=== PATIENT | male | born 1990 | race Caucasian/White ===

== ENCOUNTER 2020-04-05 09:46 | Outpatient (REF) | payer OTHER, SELFPAY | END 2020-04-05 09:47 | disposition home or self-care (01) | LOC: HO.LAB 09:46 | PROVIDERS: Visit Provider Internal Medicine | DX: Z20.828 Contact with and (suspected) exposure to other viral communicable diseases (principal) | CPT/HCPCS: C9803; U0003 ==

== ENCOUNTER 2020-04-12 03:55 | Emergency (ER) | payer OTHER, SELFPAY ==
[2020-04-12 04:03] VITALS: BP 140/82; BP 147/77; PULSE 75; PULSE 80; RESP 16; TEMP 36.8; O2SAT 97; O2SAT 98; BMI 35.7
[2020-04-12 05:15] VITALS: BP 123/58; PULSE 64
[2020-04-12 06:18] LABS: MANUAL DIFF FLAG NO
[2020-04-12 06:20] LABS: Basophils Absolute Auto 0.1 X10*3/uL (0.0-0.2); Basophils Percent Auto 0.4 % (0-2); Eosinophils Absolute Auto 0.1 X10*3/uL (0.0-0.4); Eosinophils Percent Auto 0.4 % (0-4); Hematocrit 42.1 % (42-52); Hemoglobin 14.3 g/dl (14.0-18.0); Imm Gran Abs Auto 0.05 X10*3/uL (0.00-0.03); Imm Gran Pct Auto 0.3 % (0.0-0.4); Lymphocytes Absolute Auto 3.6 X10*3/uL (1.2-4.9); Lymphocytes Percent Auto 22.7 % (20-40); Mean Corpuscular Hemoglobin 27.9 pg (27.0-33.0); Mean Corpuscular Volume 82.1 fL (80-98); Mean Platelet Volume 10.3 fL (9.4-12.4); Monocytes Absolute Auto 0.8 X10*3/uL (0.1-1.2); Monocytes Percent Auto 5.3 % (2-11); Neutrophils Absolute Auto 11.1 X10*3/uL (2.0-8.3); Neutrophils Percent Auto 70.9 % (45-73); Platelet Count 266 X10*3/uL (160-400); Red Blood Count 5.13 X10*6/uL (4.60-5.80); Red Cell Distribution Width 12.4 % (11.0-16.0); White Blood Count 15.7 X10*3/uL (4.8-10.8)
[2020-04-12 06:24] LABS: Glucose Urine UA NEG (NEG); Leukocyte Esterase Urine NEG (NEG); Nitrite Urine NEG (NEG); PH 5.5 (5.0-8.0); Specific Gravity - Urine >= 1.030 (1.005-1.025); Urine Blood TRACE (NEG); Urine Ketones NEG (NEG); Urine Protein NEG (NEG-TRACE)
[2020-04-12 06:40] LABS: Appearance Urine CLEAR; Color Urine YELLOW
--- NOTE | 2020-04-12 06:40 | CT_ITS ---
EXAMINATION: CT ABDOMEN AND PELVIS WITH CONTRAST CLINICAL INFORMATION: Abdominal pain. COMPARISON: None TECHNIQUE: Multidetector volumetric images were obtained from the superior aspect of the liver through the pubic symphysis following administration 85 mL of Omnipaque 350 intravenous contrast. Sagittal and coronal reformatted images were obtained on the technologist's workstation. Oral contrast: No This CT examination was performed using dose optimization techniques as appropriate, variously including the following: *Automated exposure control *Adjustment of mA and/or kV according to patient size (this includes techniques or standardized protocols for targeted exams where dose is matched to indication/reason for exam; i.e. extremities or head) *Use of iterative reconstruction technique DLP: 906 mGy-cm FINDINGS: LUNG BASES: The visualized lung bases are unremarkable. LIVER, GALLBLADDER, AND BILIARY TREE: The liver is normal in size, shape, and attenuation. No focal hepatic lesion or biliary ductal dilatation is present. The gallbladder is unremarkable with no evidence of radiopaque gallstones, gallbladder wall thickening, or obvious pericholecystic inflammatory changes. PANCREAS: Unremarkable. SPLEEN: Unremarkable. ADRENAL GLANDS: Unremarkable. KIDNEYS AND URETERS: The kidneys are normal in size, shape, and attenuation. No hydronephrosis, hydroureter, or calculi seen. No perinephric stranding. BLADDER: The bladder is nondistended. There is minimal bladder wall thickening likely due to to underdistention. GASTROINTESTINAL TRACT: There is scattered stool in the gas seen throughout the colon without any significant distention. The small bowel loops are normal caliber. No free air or free fluid seen. Appendix is normal caliber. No inflammatory process seen in the abdomen. ABDOMINAL WALL: No significant hernia is appreciated. LYMPH NODES: Normal. 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 Abdominal aorta is normal caliber. PELVIC VISCERA: No free fluid. No abnormal pelvic mass. No abnormal lymph nodes. OSSEOUS STRUCTURES: Grade 1 retrolisthesis of L4 or L5. Mild loss of L5-S1 disc height is noted. No lytic or sclerotic process seen. CT/CT abdomen pelvis w con IMPRESSION: No acute intra-abdominal process seen.
[2020-04-12 06:44] LABS: Alanine Aminotransferase 39 U/L (0-40); Albumin Level 4.5 g/dL (3.5-5.0); Alkaline Phosphatase 93 U/L (39-117); Anion Gap 16 (12-20); Aspartate Amino Transferase 22 U/L (5-37); Bilirubin Total 0.3 mg/dL (0.0-1.0); Blood Urea Nitrogen 11 mg/dL (9-16); Calcium 9.3 mg/dL (8.4-10.2); Carbon Dioxide 22 mmol/L (22-29); Chloride 106 mmol/L (96-108); Creatinine Clr Calc Pharmacy 150.4; Estimated Glomerular Filt Rate > 60; Glucose Random 90 mg/dL (60-115); Potassium 4.7 mmol/l (3.3-5.1); Sodium 139 mmol/L (135-145); Total Protein 7.2 g/dL (6.5-8.0)
[2020-04-12 06:45] LABS: Mucus Urine 3+ /LPF; RBC Urine 0-2 /HPF (0); Squamous Epithelial Cell Urine TRACE /LPF; WBC Urine 0 /HPF (0-4)
[2020-04-12 06:46] LABS: Uric Acid Crystals Urine TRACE /LPF
--- NOTE | 2020-04-12 06:47 | ED.ABDPAIN ---
HPI - Abdominal Pain General Chief Complaint: Abdominal Pain Stated Complaint: Abdominal Pain Time Seen by Provider: 04/12/20 06:40 Source: patient Mode of arrival: ambulatory Limitations: no limitations History of Present Illness MD elicited complaint: abdominal pain Pertinent past history: other (IBS) Onset (ago): day(s) (last night) Pain Consistency: intermittent Location: RLQ, LLQ and suprapubic Severity: moderate Quality: cramping and stabbing Radiation: none Migration to: no migration Exacerbating factors: movement Relieving factors: nothing Context: history of similar episodes (milder) Associated symptoms: nausea, vomiting, diarrhea and hematochezia (brief episodes where he noted some blood) Related Data Home Medications Medication Instructions Recorded Confirmed fiber [Fiber Choice] 1 tab PO DAILY 04/12/20 04/12/20 polyethylene glycol 3350 [Miralax] 17 g PO DAILY PRN 04/12/20 04/12/20 Previous Rx's Medication Instructions Recorded hydrocodone-acetaminophen 1 tab PO Q6H PRN #15 tab 04/12/20 ondansetron 4 mg PO Q8H PRN #20 tab 04/12/20 Allergies Allergy/AdvReac Type Severity Reaction Status Date / Time No Known Allergies Allergy Verified 04/12/20 04:03 [No Known Allergies*] Review of Systems Review of Systems Constitutional : No Weight loss, No Fever, No Chills ENT/Mouth : No sore throat, No Rhinorrhea Eyes: No Swelling, No Redness Cardiovascular : No Chest Pain, No SOB, NoEdema Respiratory : No Cough, No Sputum, No Wheezing Gastrointestinal : Positive Nausea, Positive Vomiting, positive Diarrhea, positive abdominal Pain, No Hematochezia, No Melena Genitourinary : No Dysuria, No Urinary Frequency, No Hematuria, No Urgency Musculoskeletal : No joint pain, No Myalgias, No Joint Swelling Skin : No Skin Lesions, No rash Neuro : No Weakness, No Numbness, No Dizziness, No Headache Psych : No Anxiety/Panic, No Depression Heme/Lymph: No Bruising, No Lymphadenopathy Endocrine : No Polyuria, No Polydipsia All other systems reviewed and are negative. Physical Exam Vital Signs: Vital Signs: Last Vital Signs Temp 98.1 F 04/12/20 10:00 Pulse 63 04/12/20 10:00 Resp 20 04/12/20 10:00 BP 142/77 H 04/12/20 10:00 Pulse Ox 98 04/12/20 10:00 Body Mass Index 35.7 Appearance: Alert. Oriented X3. No acute distress. patient in a deep sleep had to be woken up, anxious Eyes: Pupils equal, round and reactive to light. ENT: Pharynx normal. Neck: Normal inspection. Neck supple. CVS: Normal heart rate and rhythm. Pulses normal. Respiratory: No respiratory distress. Breath sounds normal. Abdomen: Soft and very mild suprapubic tenderness no rebound or guarding. Skin: Skin warm and dry. Normal skin color. Normal skin turgor. Extremities: No lower extremity edema. No calf ttp Neuro: Oriented X 3. No motor deficit. No sensory deficit. Course Course Course Narrative: mucously bloody diarrhea noted, no clots, studies sent off negative CT scan, WBC baseline 17 no increased rise from his baseline, + stool for WBCs and blood, one bout of stool in 5 hours in ED, will send message to GI for recommendations still pending GI call back at this time on bout of stool while in ED at this time will DC home and follow up with GI as outpatient basis discussed with patient that GI aware and agree with plan MDM - Abdominal Pain MDM Narrative Medical decision making narrative: 29 yo male with what sounds like hx of IBS comes in with lower abdominal pain n/v/d had episode of brb - not toxic, overly anxious, had to be woken up for for my exam but reports 10/10 pain he has no rebound or guarding at this time, will obtain labs, hydrate, CT scan for colitis, dispo per results and findings. Lab Data Result diagrams: 04/12/20 05:53 04/12/20 05:53 Labs: Lab Results 04/12/20 04/12/20 04/12/20 Range/Units 05:53 05:53 05:53 WBC 15.7 H (4.8-10.8) X10*3/uL RBC 5.13 (4.60-5.80) X10*6/uL Hgb 14.3 (14.0-18.0) g/dl Hct 42.1 (42-52) % MCV 82.1 (80-98) fL MCH 27.9 (27.0-33.0) pg MCHC 34.0 (31.0-36.0) g/dl RDW 12.4 (11.0-16.0) % Plt Count 266 (160-400) X10*3/uL MPV 10.3 (9.4-12.4) fL Immature Gran % (Auto) 0.3 (0.0-0.4) % Neut % (Auto) 70.9 (45-73) % Lymph % (Auto) 22.7 (20-40) % [place] % (Auto) 5.3 (2-11) % Eos % (Auto) 0.4 (0-4) % Baso % (Auto) 0.4 (0-2) % Lymph # (Auto) 3.6 (1.2-4.9) X10*3/uL [place] # (Auto) 0.8 (0.1-1.2) X10*3/uL Eos # (Auto) 0.1 (0.0-0.4) X10*3/uL Baso # (Auto) 0.1 (0.0-0.2) X10*3/uL Abs Immat Gran (auto) 0.05 H (0.00-0.03) X10*3/uL Absolute Neuts (auto) 11.1 H (2.0-8.3) X10*3/uL Absolute Nucleated RBC 0.000 (0.0-0.012) X10*3/uL Nucleated RBC % (auto) 0.0 (0.0-0.2) /100WBC Hold Blue Top SEE NOTE Sodium 139 (135-145) mmol/L Potassium 4.7 (3.3-5.1) mmol/l Chloride 106 (96-108) mmol/L Carbon Dioxide 22 (22-29) mmol/L Anion Gap 16 (12-20) BUN 11 (9-16) mg/dL Creatinine 0.85 (0.5-1.4) mg/dL Estim Creat Clear Calc 150.4 Estimated GFR > 60 Random Glucose 90 (60-115) mg/dL Lactic Acid (0.5-2.0) mmol/L Calcium 9.3 (8.4-10.2) mg/dL Total Bilirubin 0.3 (0.0-1.0) mg/dL AST 22 (5-37) U/L ALT 39 (0-40) U/L Alkaline Phosphatase 93 (39-117) U/L Total Protein 7.2 (6.5-8.0) g/dL Albumin 4.5 (3.5-5.0) g/dL Urine Color Urine Appearance Urine pH (5.0-8.0) Ur Specific [place] (1.005-1.025) Urine Protein (NEG-TRACE) MG/DL Urine Glucose (UA) (NEG) MG/DL Urine Ketones (NEG) MG/DL Urine Blood (NEG) Urine Nitrite (NEG) Ur Leukocyte Esterase (NEG) Urine RBC (0) /HPF Urine WBC (0-4) /HPF Ur Squamous Epith Cells /LPF Uric Acid Crystals /LPF Urine Bacteria /LPF Urine Mucus /LPF Stool Occult Blood (NEG) Stool Leukocytes, Qual (NEGATIVE) C. difficile Toxin A&B (Negative) C. difficile Antigen (Negative) C. difficile Interpret COVID-19 (JUDITH) (Negative) COVID-19 Clin Com 04/12/20 04/12/20 04/12/20 Range/Units 05:53 07:56 07:56 WBC (4.8-10.8) X10*3/uL RBC (4.60-5.80) X10*6/uL Hgb (14.0-18.0) g/dl Hct (42-52) % MCV (80-98) fL MCH (27.0-33.0) pg MCHC (31.0-36.0) g/dl RDW (11.0-16.0) % Plt Count (160-400) X10*3/uL MPV (9.4-12.4) fL Immature Gran % (Auto) (0.0-0.4) % Neut % (Auto) (45-73) % Lymph % (Auto) (20-40) % Canadian % (Auto) (2-11) % Eos % (Auto) (0-4) % Baso % (Auto) (0-2) % Lymph # (Auto) (1.2-4.9) X10*3/uL Canadian # (Auto) (0.1-1.2) X10*3/uL Eos # (Auto) (0.0-0.4) X10*3/uL Baso # (Auto) (0.0-0.2) X10*3/uL Abs Immat Gran (auto) (0.00-0.03) X10*3/uL Absolute Neuts (auto) (2.0-8.3) X10*3/uL Absolute Nucleated RBC (0.0-0.012) X10*3/uL Nucleated RBC % (auto) (0.0-0.2) /100WBC Hold Blue Top Sodium (135-145) mmol/L Potassium (3.3-5.1) mmol/l Chloride (96-108) mmol/L Carbon Dioxide (22-29) mmol/L Anion Gap (12-20) BUN (9-16) mg/dL Creatinine (0.5-1.4) mg/dL Estim Creat Clear Calc Estimated GFR Random Glucose (60-115) mg/dL Lactic Acid (0.5-2.0) mmol/L Calcium (8.4-10.2) mg/dL Total Bilirubin (0.0-1.0) mg/dL AST (5-37) U/L ALT (0-40) U/L Alkaline Phosphatase (39-117) U/L Total Protein (6.5-8.0) g/dL Albumin (3.5-5.0) g/dL Urine Color YELLOW Urine Appearance CLEAR Urine pH 5.5 (5.0-8.0) Ur Specific [place] >= 1.030 H (1.005-1.025) Urine Protein NEG (NEG-TRACE) MG/DL Urine Glucose (UA) NEG (NEG) MG/DL Urine Ketones NEG (NEG) MG/DL Urine Blood TRACE (NEG) Urine Nitrite NEG (NEG) Ur Leukocyte Esterase NEG (NEG) Urine RBC 0-2 (0) /HPF Urine WBC 0 (0-4) /HPF Ur Squamous Epith Cells TRACE /LPF Uric Acid Crystals TRACE /LPF Urine Bacteria NONE /LPF Urine Mucus 3+ /LPF Stool Occult Blood POS (NEG) Stool Leukocytes, Qual MANY: >10/OIF (NEGATIVE) C. difficile Toxin A&B (Negative) C. difficile Antigen (Negative) C. difficile Interpret COVID-19 (JUDITH) (Negative) COVID-19 Clin Com 04/12/20 04/12/20 04/12/20 Range/Units 07:56 08:46 08:47 WBC (4.8-10.8) X10*3/uL RBC (4.60-5.80) X10*6/uL Hgb (14.0-18.0) g/dl Hct (42-52) % MCV (80-98) fL MCH (27.0-33.0) pg MCHC (31.0-36.0) g/dl RDW (11.0-16.0) % Plt Count (160-400) X10*3/uL MPV (9.4-12.4) fL Immature Gran % (Auto) (0.0-0.4) % Neut % (Auto) (45-73) % Lymph % (Auto) (20-40) % Canadian % (Auto) (2-11) % Eos % (Auto) (0-4) % Baso % (Auto) (0-2) % Lymph # (Auto) (1.2-4.9) X10*3/uL Canadian # (Auto) (0.1-1.2) X10*3/uL Eos # (Auto) (0.0-0.4) X10*3/uL Baso # (Auto) (0.0-0.2) X10*3/uL Abs Immat Gran (auto) (0.00-0.03) X10*3/uL Absolute Neuts (auto) (2.0-8.3) X10*3/uL Absolute Nucleated RBC (0.0-0.012) X10*3/uL Nucleated RBC % (auto) (0.0-0.2) /100WBC Hold Blue Top Sodium (135-145) mmol/L Potassium (3.3-5.1) mmol/l Chloride (96-108) mmol/L Carbon Dioxide (22-29) mmol/L Anion Gap (12-20) BUN (9-16) mg/dL Creatinine (0.5-1.4) mg/dL Estim Creat Clear Calc Estimated GFR Random Glucose (60-115) mg/dL Lactic Acid (0.5-2.0) mmol/L Calcium (8.4-10.2) mg/dL Total Bilirubin (0.0-1.0) mg/dL AST (5-37) U/L ALT (0-40) U/L Alkaline Phosphatase (39-117) U/L Total Protein (6.5-8.0) g/dL Albumin (3.5-5.0) g/dL Urine Color STRAW Urine Appearance CLEAR Urine pH 7.0 (5.0-8.0) Ur Specific [place] <= 1.005 (1.005-1.025) Urine Protein NEG (NEG-TRACE) MG/DL Urine Glucose (UA) NEG (NEG) MG/DL Urine Ketones NEG (NEG) MG/DL Urine Blood NEG (NEG) Urine Nitrite NEG (NEG) Ur Leukocyte Esterase NEG (NEG) Urine RBC (0) /HPF Urine WBC (0-4) /HPF Ur Squamous Epith Cells /LPF Uric Acid Crystals /LPF Urine Bacteria /LPF Urine Mucus /LPF Stool Occult Blood (NEG) Stool Leukocytes, Qual (NEGATIVE) C. difficile Toxin A&B Negative (Negative) C. difficile Antigen Negative (Negative) C. difficile Interpret SEE NOTE COVID-19 (JUDITH) Negative (Negative) COVID-19 Clin Com See Note 04/12/20 Range/Units 09:01 WBC (4.8-10.8) X10*3/uL RBC (4.60-5.80) X10*6/uL Hgb (14.0-18.0) g/dl Hct (42-52) % MCV (80-98) fL MCH (27.0-33.0) pg MCHC (31.0-36.0) g/dl RDW (11.0-16.0) % Plt Count (160-400) X10*3/uL MPV (9.4-12.4) fL Immature Gran % (Auto) (0.0-0.4) % Neut % (Auto) (45-73) % Lymph % (Auto) (20-40) % [place] % (Auto) (2-11) % Eos % (Auto) (0-4) % Baso % (Auto) (0-2) % Lymph # (Auto) (1.2-4.9) X10*3/uL [place] # (Auto) (0.1-1.2) X10*3/uL Eos # (Auto) (0.0-0.4) X10*3/uL Baso # (Auto) (0.0-0.2) X10*3/uL Abs Immat Gran (auto) (0.00-0.03) X10*3/uL Absolute Neuts (auto) (2.0-8.3) X10*3/uL Absolute Nucleated RBC (0.0-0.012) X10*3/uL Nucleated RBC % (auto) (0.0-0.2) /100WBC Hold Blue Top Sodium (135-145) mmol/L Potassium (3.3-5.1) mmol/l Chloride (96-108) mmol/L Carbon Dioxide (22-29) mmol/L Anion Gap (12-20) BUN (9-16) mg/dL Creatinine (0.5-1.4) mg/dL Estim Creat Clear Calc Estimated GFR Random Glucose (60-115) mg/dL Lactic Acid 1.4 (0.5-2.0) mmol/L Calcium (8.4-10.2) mg/dL Total Bilirubin (0.0-1.0) mg/dL AST (5-37) U/L ALT (0-40) U/L Alkaline Phosphatase (39-117) U/L Total Protein (6.5-8.0) g/dL Albumin (3.5-5.0) g/dL Urine Color Urine Appearance Urine pH (5.0-8.0) Ur Specific [place] (1.005-1.025) Urine Protein (NEG-TRACE) MG/DL Urine Glucose (UA) (NEG) MG/DL Urine Ketones (NEG) MG/DL Urine Blood (NEG) Urine Nitrite (NEG) Ur Leukocyte Esterase (NEG) Urine RBC (0) /HPF Urine WBC (0-4) /HPF Ur Squamous Epith Cells /LPF Uric Acid Crystals /LPF Urine Bacteria /LPF Urine Mucus /LPF Stool Occult Blood (NEG) Stool Leukocytes, Qual (NEGATIVE) C. difficile Toxin A&B (Negative) C. difficile Antigen (Negative) C. difficile Interpret COVID-19 (JUDITH) (Negative) COVID-19 Clin Com Discharge Plan Discharge Clinical Impression: Diarrhea Qualifiers: Diarrhea type: infectious Qualified Code(s): A09 - Infectious gastroenteritis and colitis, unspecified GI (gastrointestinal bleed) Qualifiers: GI bleed type/associated pathology: unspecified gastrointestinal hemorrhage type Qualified Code(s): K92.2 - Gastrointestinal hemorrhage, unspecified Patient Disposition: Home, Self-Care Instructions: Gastrointestinal Bleeding (ED), Acute Diarrhea (ED), Abdominal Pain (ED) Additional Instructions: return to ED for any worsening symptoms or concerns culture sent off for bacteria, most diarrhea is self limited, your CT scan was normal, bland diet, no motrin/aspirin/ibuprofen Prescriptions: New hydrocodone-acetaminophen 5-325 mg tablet 1 tab PO Q6H PRN (Reason: pain) Qty: 15 RF: 0 ondansetron 4 mg tablet,disintegrating 4 mg PO Q8H PRN (Reason: nausea and vomiting) Qty: 20 RF: 0 No Action polyethylene glycol 3350 [Miralax] 17 gram Powder In Packet 17 g PO DAILY PRN (Reason: Constipation) RF: 0 Fiber Choice Tablet,Chewable 1 tab PO DAILY RF: 0 Referrals: Physician,Unknown [Primary Care Provider] - 2 days (your PCP on Wednesday and GI) Stand Alone Forms: Work/School Release Interventions: ED Discharge Assessment Last Done: 04/12/20 12:01 Discharge Date/Time: 04/12/20 12:04 [facility] Past Medical History Attestation statement: The following information was validated with the patient. Medical History IBS (irritable bowel syndrome) Social History Social History (Updated 04/12/20 @ 06:49 by Selina Arzate DO) Alcohol intake: former Smoking Status: Current every day smoker Smoked in Last 30 Days: Yes Use of substances other than those prescribed or required for medical reasons: Yes Substance Use Type: Marijuana Substance Use Frequency: Daily Advance Directives: No
[2020-04-12] MEDS: 0.9 % Sodium Chloride 1,000 ML 999 ML IVCONT (07:00)
[2020-04-12 07:07] VITALS: BP 122/79; PULSE 64; RESP 20; O2SAT 98
[2020-04-12] MEDS: iohexoL 350 MG/ML 100 ML INFUS..BTL 85 ML IV (07:50)
[2020-04-12 08:06] LABS: OBS Int Ctl Valid YES; OBS1 POS (NEG)
[2020-04-12 08:25] LABS: Leukocytes Stool Qualitative MANY: >10/OIF (NEGATIVE)
[2020-04-12 08:39] VITALS: BP 135/79; PULSE 65; RESP 18; O2SAT 98
[2020-04-12 08:41] VITALS: RESP 18
[2020-04-12] MEDS: Morphine Sulfate 4 MG/ML CARTRIDGE IVPUSH (08:41)
[2020-04-12 09:25] LABS: COVID-19 Test Negative (Negative)
[2020-04-12 09:29] LABS: Glucose Urine UA NEG (NEG); Leukocyte Esterase Urine NEG (NEG); Nitrite Urine NEG (NEG); Specific Gravity - Urine <= 1.005 (1.005-1.025); Urine Blood NEG (NEG); Urine Ketones NEG (NEG); Urine Protein NEG (NEG-TRACE)
[2020-04-12 09:29] LABS: Lactic Acid 1.4 mmol/L (0.5-2.0)
[2020-04-12 09:31] LABS: Appearance Urine CLEAR; Color Urine STRAW
[2020-04-12 10:00] VITALS: BP 142/77; PULSE 63; RESP 20; TEMP 36.7; O2SAT 98
--- NOTE | 2020-04-12 10:05 | PC.NURSE ---
Patient independently ambulating back and forth to bathroom with steady gait.
[2020-04-12 10:07] LABS: CDIFF Ag Negative (Negative); CDIFF Internal ctrl Dots and bkg OK (V); CDiff Toxin Negative (Negative)
--- NOTE | 2020-04-12 11:26 | PC.NURSE ---
Dr Arzate awaiting Dr Bryant call back for consult
== END 2020-04-12 12:04 | disposition home or self-care (01) ==
PROVIDERS: Emergency Provider Emergency Medicine
DX: A09 Infectious gastroenteritis and colitis, unspecified (principal); K92.2 Gastrointestinal hemorrhage, unspecified; R10.31 Right lower quadrant pain; R10.32 Left lower quadrant pain; F12.90 Cannabis use, unspecified, uncomplicated; Z20.828 Contact with and (suspected) exposure to other viral communicable diseases; Z79.899 Other long term (current) drug therapy; Z71.6 Tobacco abuse counseling; F17.200 Nicotine dependence, unspecified, uncomplicated
CPT/HCPCS: 36415; 74177; 80053; 81001; 81003; 82272; 83605; 85025; 87045; 87046; 87324; 87449; 87635; 89055; 96361; 96374; 99284; J2270; Q9967

== ENCOUNTER 2020-04-29 10:26 | Outpatient (REF) | payer OTHER, SELFPAY | END 2020-04-29 10:27 | disposition home or self-care (01) | LOC: HO.LAB 10:26 | PROVIDERS: PCP Family Medicine; Visit Provider Nurse Practitioner | DX: K62.5 Hemorrhage of anus and rectum (principal); R19.7 Diarrhea, unspecified; D72.829 Elevated white blood cell count, unspecified; R21 Rash and other nonspecific skin eruption; R39.11 Hesitancy of micturition; R10.9 Unspecified abdominal pain | CPT/HCPCS: 86140 ==

== ENCOUNTER 2020-04-30 11:47 | Outpatient (REF) | payer OTHER, SELFPAY | END 2020-04-30 11:48 | disposition home or self-care (01) | LOC: HO.LNP 11:47 | PROVIDERS: Visit Provider Nurse Practitioner | DX: R10.9 Unspecified abdominal pain (principal) | CPT/HCPCS: 87338 ==

== ENCOUNTER 2020-05-07 09:02 | Outpatient (REF) | payer OTHER, SELFPAY ==
--- NOTE | 2020-05-07 | FL_ITS ---
EXAMINATION: FL SMALL BOWEL SERIES and upper GI CLINICAL INFORMATION: Abdominal pain. COMPARISON: None TECHNIQUE: Following a handhole machine operator image of the abdomen, contrast was administered orally, and interval abdominal radiographs were performed to assess for contrast progression through the small bowel. Following contrast transit through the small bowel and into the colon, the patient was placed on the fluoroscopy table, and multiple spot images were obtained. FINDINGS: Asphalt Plant Operator image of the abdomen demonstrates a normal bowel gas pattern. There is normal transit time of contrast material through the small bowel, with contrast present in the colon by 1 hour 45 minutes. Small bowel loops are of normal caliber throughout the abdomen and pelvis. The jejunal and ileal fold patterns are normal, without evidence of abnormal thickening. No fixed regions of luminal narrowing are seen to suggest stricturing. The terminal ileum demonstrates a normal appearance. FLUOROSCOPY TIME: 0.7 minutes DOSE AREA PRODUCT: 10.591 gy/cm2. total dose 38 mgy. 21 saved fluoroscopic images. This is for combined upper GI and small bowel series. FL/FL small bowel follow through IMPRESSION: Normal small bowel series.
--- NOTE | 2020-05-07 09:08 | FL_ITS ---
EXAMINATION: XR GI SERIES CLINICAL INFORMATION: Abdominal pain. COMPARISON: None TECHNIQUE: Upper GI was performed using thin and thick barium and effervescent granules. FINDINGS: Esophageal motility is normal. No gastroesophageal reflux or hernia is seen. Stomach and duodenum are normal-appearing. No fold thickening, mass, ulcer or stricture is seen. FLUOROSCOPY TIME: 0.7 min DOSE AREA PRODUCT: 10.6 gy/cm2. 21 saved fluoroscopic images. This is for combined upper GI and small bowel follow-through. FL/FL upper GI series IMPRESSION: Unremarkable examination.
== END 2020-05-07 09:03 | disposition home or self-care (01) ==
LOC: HO.XRAY 09:02
PROVIDERS: Visit Provider Nurse Practitioner
DX: R10.9 Unspecified abdominal pain (principal)
CPT/HCPCS: 74240; 74250

== ENCOUNTER 2020-05-15 11:53 | Day surgery (SDC) | payer OTHER, SELFPAY ==
[2020-05-10 14:16] VITALS: BMI 35.7
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
[2020-05-15 12:23] VITALS: BP 136/85; PULSE 83; RESP 16; TEMP 37.2; O2SAT 95
[2020-05-15] MEDS: Lactated Ringers 1,000 ML 100 ML IVCONT (12:36)
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
--- NOTE | 2020-05-15 13:54 | PM.OP ---
Brief Operative Note Date of Service: 05/15/20 Pre-op diagnosis: abdominal pain, diarrhea Post-op diagnosis: same Procedure: see op note Surgeon: Miles Kovacs MD Anesthesia: MAC Estimated blood loss (mL): 0 Condition: stable Disposition: PACU
--- NOTE | 2020-05-15 13:54 | W.PM.OPN ---
Operative Note Operative Note Date of Service: 05/15/20 Narrative: Operative Information Procedure Description: EGD, Colonoscopy FLEXIBLE TRANSORAL UPPER GASTROINTESTINAL ENDOSCOPY AND COLONOSCOPY PROCEDURE NOTE UPPER ENDOSCOPY Consent: Indications for the procedure and potential complications of bleeding, perforation, reaction to medications and missed diagnosis were discussed with the patient and informed consent was obtained. Instrument: Olympus GIF H 190 J mid size upper endoscope Monitoring: Vital signs and clinical assessment, continuous EKG monitoring, Pulse oximetry, Carbon Dioxide monitoring and blood pressure monitoring were done throughout the procedure. Procedure: The patient was placed in the left lateral decubitis position and pre-procedure medications were administered and a bite block was placed. The endoscope was inserted into the mouth and advanced under direct vision to the third part of duodenum. A careful inspection was made as the upper endoscope was withdrawn including a retroflexed examination of the proximal stomach; Findings and interventions are described below. Findings: Larynx:normal Esophagus: GE junction at [] cm, diaphragm hiatus at [] cm, normal mucosa Stomach: Normal mucosa. Biopsies were obtained. Grade 2 flap valve on retroflexed examination of the cardia. Duodenum: Normal bulb and descending duodenum, Intervention: Biopsies as noted above COLONOSCOPY Instrument: Olympus variable stiffness adult scope 190L Colonoscopy Monitoring: Vital signs and clinical assessment, continuous EKG monitoring, Pulse oximetry, Carbon Dioxide monitoring and blood pressure monitoring were done throughout the procedure. Colon withdrawal time was 12 minutes. Procedure: The patient was placed in the left lateral decubitis position and pre-procedure medications were administered. After a digital rectal examination of the ano-rectum, the video colonoscope was inserted into the rectum and advanced through the colon to the cecum/TI. The colonoscope was slowly withdrawn in a retrograde panoramic fashion and the colon mucosa was carefully examined including a retroflexed view of the rectum. Findings and interventions are described below. Procedure Difficulty:easy Findings: random colon bx taken Terminal Ileum-normal, bx taken Cecum:normal Ascending Colon: normal Transverse Colon -normal Descending Colon: 8-9 mm sessile polyp removed with cold snare Sigmoid Colon: mild to moderate diverticular disease with small tics, mild patchy erythema. 8-10 mm sessile polyp removed with cold snare Rectum: Retroflexion with small internal hemorrhoids, grade I Anorectum - normal After the end of procedure: The patient was turned on his back and a previously marked point which I had marked where had pinpointed his abdominal pain was identified. Wiped with alcohol swab and injected with combination of 2-3 cc 1% lidocaine with epi and 40 mg kenalog. Colon preparation: [place] Bowel Preparation Scale Right colon; 3 Transverse colon: 3 Left colon; 3 (0 = Unprepared colon segment with mucosa not seen due to solid stool that cannot be cleared. 1 = Portion of mucosa of the colon segment seen, but other areas of the colon segment not well seen due to staining, residual stool and/or opaque liquid. 2 = Minor amount of residual staining, small fragments of stool and/or opaque liquid, but mucosa of colon segment seen well. 3 = Entire mucosa of colon segment seen well with no residual staining, small fragments of stool or opaque liquid) Impression and Post Procedure Diagnosis: Endoscopy Findings: gastritis Colonoscopy Findings: polyps internal hemorrhoids diverticular disease Plan: Await Pathology results Repeat Colonoscopy in 3-5 years or earlier if clinically indicated High fiber diet leaflet avoid straining at stool, epsom salts and sitz bath, anusol supps or cream prn suspect pain is myofascial, if bx neg and persists then refer pain management Above findings were reviewed with the patient and relevant handouts were provided if indicated.
[2020-05-15 14:05] VITALS: BP 118/70; PULSE 95; RESP 16; TEMP 36.5; O2SAT 99
[2020-05-15 14:20] VITALS: BP 124/73; PULSE 73; RESP 20; O2SAT 100
[2020-05-15] MEDS: Acetaminophen 325 MG TABLET 650 MG PO (14:23)
[2020-05-15] MEDS: ondansetron HCL 4 MG/2 ML VIAL IVPUSH (14:23)
[2020-05-15 14:30] VITALS: BP 138/75; PULSE 70; RESP 18; O2SAT 100
== END 2020-05-15 14:58 | disposition home or self-care (01) ==
PROVIDERS: Visit Provider Internal Medicine Gastroenterology
PROC: (CPT 45385; principal; 2020-05-15 13:10)
DX: K62.5 Hemorrhage of anus and rectum (principal); R10.9 Unspecified abdominal pain; K58.0 Irritable bowel syndrome with diarrhea; D72.829 Elevated white blood cell count, unspecified; D12.4 Benign neoplasm of descending colon; D12.5 Benign neoplasm of sigmoid colon; K57.30 Diverticulosis of large intestine without perforation or abscess without bleeding; K64.0 First degree hemorrhoids; K21.9 Gastro-esophageal reflux disease without esophagitis; K29.70 Gastritis, unspecified, without bleeding; K44.9 Diaphragmatic hernia without obstruction or gangrene; E55.9 Vitamin D deficiency, unspecified; F43.10 Post-traumatic stress disorder, unspecified; H51.11 Convergence insufficiency; Z79.899 Other long term (current) drug therapy; F17.210 Nicotine dependence, cigarettes, uncomplicated; F12.90 Cannabis use, unspecified, uncomplicated
CPT/HCPCS: 45385; 43239; 88305; 88342; J2405; J3300

== ENCOUNTER → 2020-06-05 13:25 | Outpatient (BNVA) | payer OTHER, SELFPAY | PROVIDERS: Visit Provider Nurse Practitioner ==

== ENCOUNTER 2020-10-30 08:54 | Emergency (ER) | payer OTHER, SELFPAY ==
--- NOTE | ~2020-10-30 | XR_ITS ---
EXAMINATION: XR CHEST CLINICAL INFORMATION: Shortness of breath and cough COMPARISON: None TECHNIQUE: Frontal view of the chest was obtained. FINDINGS: No significant abnormality is noted involving the heart, lungs, mediastinum, bony thorax or soft tissues. XR/XR chest 1V IMPRESSION: Unremarkable examination.
[2020-10-30 09:05] VITALS: BP 151/86; PULSE 75; RESP 14; TEMP 36.5; O2SAT 97; BMI 36.5
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
--- NOTE | 2020-10-30 09:44 | ECG_ITS ---
Test Reason : CHEST PAIN Blood Pressure : / mmHG Vent. Rate : 081 BPM Atrial Rate : 081 BPM P-R Int : 158 ms QRS Dur : 086 ms QT Int : 364 ms P-R-T Axes : 045 090 028 degrees QTc Int : 422 ms Normal sinus rhythm Rightward axis Borderline ECG No previous ECGs available Referred By: Rosio Hurtado Electronically Signed By:TRUDY MARTINEZ MD
[2020-10-30 10:42] LABS: MANUAL DIFF FLAG NO
[2020-10-30 10:45] LABS: Basophils Percent Auto 0.4 % (0-2); Eosinophils Absolute Auto 0.1 X10*3/uL (0.0-0.4); Hematocrit 42.3 % (42-52); Hemoglobin 14.2 g/dl (14.0-18.0); Imm Gran Abs Auto 0.03 X10*3/uL (0.00-0.03); Imm Gran Pct Auto 0.3 % (0.0-0.4); Lymphocytes Absolute Auto 1.8 X10*3/uL (1.2-4.9); Lymphocytes Percent Auto 16.5 % (20-40); Mean Corpuscular HGB Conc 33.6 g/dl (31.0-36.0); Mean Corpuscular Hemoglobin 27.7 pg (27.0-33.0); Mean Corpuscular Volume 82.6 fL (80-98); Mean Platelet Volume 10.5 fL (9.4-12.4); Monocytes Percent Auto 9.2 % (2-11); Neutrophils Absolute Auto 7.9 X10*3/uL (2.0-8.3); Neutrophils Percent Auto 72.6 % (45-73); Platelet Count 240 X10*3/uL (160-400); Red Blood Count 5.12 X10*6/uL (4.60-5.80); Red Cell Distribution Width 12.4 % (11.0-16.0); White Blood Count 10.9 X10*3/uL (4.8-10.8)
[2020-10-30 10:55] LABS: D Dimer < 200 NG/ML
[2020-10-30 11:11] LABS: Anion Gap 13 (12-20); Blood Urea Nitrogen 9 mg/dL (9-16); Calcium 9.5 mg/dL (8.4-10.2); Carbon Dioxide 26 mmol/L (22-29); Chloride 105 mmol/L (96-108); Creatinine Clr Calc Pharmacy 147.1; Estimated Glomerular Filt Rate > 60; Glucose Random 88 mg/dL (60-115); Potassium 4.1 mmol/L (3.3-5.1); Sodium 140 mmol/L (135-145)
[2020-10-30 11:17] LABS: Troponin-I High Sensitivity < 3.5 ng/L (<3.5-35.0)
[2020-10-30 11:24] LABS: Influenza A PCR NEGATIVE (Negative); Influenza B PCR NEGATIVE (Negative); Resp Syncy Virus RNA Qual PCR NEGATIVE (Negative); SARS COV2 PCR INHOUSE NEGATIVE (Negative)
[2020-10-30 11:36] VITALS: BP 129/80; PULSE 73; RESP 18; TEMP 37; O2SAT 99
== END 2020-10-30 12:03 | disposition home or self-care (01) ==
PROVIDERS: Physician Assistant; Emergency Provider Emergency Medicine; PCP Family Medicine
DX: J06.9 Acute upper respiratory infection, unspecified (principal); Z20.822 Contact with and (suspected) exposure to COVID-19; R07.9 Chest pain, unspecified
CPT/HCPCS: 0241U; 36415; 71045; 80048; 84484; 85025; 85379; 93005; 99283; 99284

== ENCOUNTER → 2020-11-28 14:10 | Outpatient (BNVA) | payer OTHER, SELFPAY | PROVIDERS: PCP Family Medicine; Visit Provider Nurse Practitioner | DX: K58.9 Irritable bowel syndrome, unspecified (principal); K62.5 Hemorrhage of anus and rectum; K21.9 Gastro-esophageal reflux disease without esophagitis; R10.9 Unspecified abdominal pain; R19.7 Diarrhea, unspecified; D72.829 Elevated white blood cell count, unspecified; R21 Rash and other nonspecific skin eruption; R39.11 Hesitancy of micturition; E73.9 Lactose intolerance, unspecified; D12.6 Benign neoplasm of colon, unspecified; Z80.0 Family history of malignant neoplasm of digestive organs ==

== ENCOUNTER → 2020-12-03 15:44 | Outpatient (BNVA) | payer OTHER, SELFPAY | PROVIDERS: PCP Family Medicine; Visit Provider Nurse Practitioner | DX: K58.9 Irritable bowel syndrome, unspecified (principal); K62.5 Hemorrhage of anus and rectum; K21.9 Gastro-esophageal reflux disease without esophagitis; R10.9 Unspecified abdominal pain; R19.7 Diarrhea, unspecified; D72.829 Elevated white blood cell count, unspecified; R21 Rash and other nonspecific skin eruption; R39.11 Hesitancy of micturition; E73.9 Lactose intolerance, unspecified; D12.6 Benign neoplasm of colon, unspecified; Z80.0 Family history of malignant neoplasm of digestive organs ==

== ENCOUNTER → 2021-06-19 08:13 | Outpatient (BNVA) | payer OTHER, SELFPAY | PROVIDERS: PCP Family Medicine; Visit Provider Nurse Practitioner | DX: K58.9 Irritable bowel syndrome, unspecified (principal); K21.9 Gastro-esophageal reflux disease without esophagitis; E73.9 Lactose intolerance, unspecified; Z79.899 Other long term (current) drug therapy | CPT/HCPCS: 99212 ==

== ENCOUNTER → 2022-08-07 14:49 | Outpatient (BNVA) | payer OTHER, SELFPAY | PROVIDERS: PCP Family Medicine; Visit Provider Nurse Practitioner | DX: K58.9 Irritable bowel syndrome, unspecified (principal); K21.9 Gastro-esophageal reflux disease without esophagitis; E73.9 Lactose intolerance, unspecified; Z79.899 Other long term (current) drug therapy | CPT/HCPCS: 99212 ==

== ENCOUNTER 2023-02-23 10:56 | Outpatient (AMB) | payer OTHER, SELFPAY ==
[2023-02-23 10:57] VITALS: BP 155/91; PULSE 80; O2SAT 97; BMI 32.6
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
== END 2023-02-23 11:41 | disposition home or self-care (01) ==
PROVIDERS: PCP Family Medicine; Visit Provider Nurse Practitioner
DX: K21.9 Gastro-esophageal reflux disease without esophagitis (principal); K58.9 Irritable bowel syndrome, unspecified
CPT/HCPCS: 99213

== ENCOUNTER → 2023-02-23 10:56 | Outpatient (BNVA) | payer OTHER, SELFPAY | PROVIDERS: Visit Provider Nurse Practitioner | DX: K58.9 Irritable bowel syndrome, unspecified (principal); K21.9 Gastro-esophageal reflux disease without esophagitis; E73.9 Lactose intolerance, unspecified | CPT/HCPCS: 99212 ==

== ENCOUNTER 2023-05-01 18:18 | Emergency (ER) | payer OTHER, SELFPAY ==
[2023-05-01 19:19] VITALS: BP 135/84; PULSE 72; RESP 18; TEMP 36.4; O2SAT 96; BMI 31.6
[2023-05-01 20:12] LABS: MANUAL DIFF FLAG NO
[2023-05-01 20:13] LABS: Basophils Percent Auto 0.5 % (0-2); Eosinophils Percent Auto 0.5 % (0-4); Hematocrit 43.8 % (42.0-52.0); Hemoglobin 14.7 g/dl (14.0-18.0); Imm Gran Abs Auto 0.02 X10*3/uL (0.00-0.03); Imm Gran Pct Auto 0.3 % (0.0-0.4); Lymphocytes Absolute Auto 1.7 X10*3/uL (1.2-4.9); Mean Corpuscular HGB Conc 33.6 g/dl (31.0-36.0); Mean Corpuscular Hemoglobin 27.6 pg (27.0-33.0); Mean Corpuscular Volume 82.3 fL (80.0-98.0); Monocytes Absolute Auto 0.7 X10*3/uL (0.1-1.2); Monocytes Percent Auto 8.9 % (2-11); Neutrophils Absolute Auto 5.1 x10*3/uL (2.0-8.3); Neutrophils Percent Auto 67.8 % (45-73); Platelet Count 208 X10*3/uL (160-400); Red Blood Count 5.32 X10*6/uL (4.60-5.80); White Blood Count 7.5 X10*3/uL (4.8-10.8)
[2023-05-01 20:27] LABS: Alanine Aminotransferase 16 U/L (0-40); Albumin Level 4.7 g/dL (3.5-5.0); Alkaline Phosphatase 84 U/L (39-117); Anion Gap 12 (12-20); Aspartate Amino Transferase 17 U/L (5-37); Bilirubin Total 0.2 mg/dL (0.0-1.0); Blood Urea Nitrogen 13 mg/dL (9-16); Calcium 9.4 mg/dL (8.4-10.2); Carbon Dioxide 26 mmol/L (22-29); Chloride 107 mmol/L (96-108); Creatinine Clr Calc Pharmacy 136.1; Estimated Glomerular Filt Rate > 60; Glucose Random 90 mg/dL (60-115); Lipase 30 U/L (8-78); Potassium 3.8 mmol/L (3.3-5.1); Sodium 141 mmol/L (135-145); Total Protein 7.7 g/dL (6.5-8.0)
[2023-05-01 20:28] LABS: COVID-19 Test Negative (Negative); IDNOW Serial# 58CA691E; IDNOW Serial# 9DB6401D; Influenza A Negative (Negative); Influenza B2 Negative (Negative)
== END 2023-05-02 02:44 | disposition left against medical advice (07) ==
PROVIDERS: Emergency Provider Emergency Medicine; PCP Family Medicine
DX: R19.7 Diarrhea, unspecified (principal); Z11.52 Encounter for screening for COVID-19
CPT/HCPCS: 80053; 83690; 85025; 87502; 87635; 99281; 99283

== ENCOUNTER 2023-05-18 19:37 | Emergency (ER) | payer OTHER, SELFPAY ==
[2023-05-18 20:21] VITALS: BP 157/97; PULSE 88; RESP 16; TEMP 37.1; O2SAT 99; BMI 33.6
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
[2023-05-18] MEDS: Doxycycline Monohydrate 100 MG CAPSULE PO (20:34)
[2023-05-18] MEDS: cephALEXin 500 MG CAPSULE PO (20:34)
== END 2023-05-18 21:05 | disposition home or self-care (01) ==
PROVIDERS: Emergency Provider Emergency Medicine Emergency Medical Services; PCP Family Medicine
DX: L03.113 Cellulitis of right upper limb (principal)
CPT/HCPCS: 99282; 99283

== ENCOUNTER 2023-11-24 16:05 | Outpatient (AMB) | payer OTHER, SELFPAY ==
[2023-11-24 16:11] VITALS: BP 153/81; PULSE 70; BMI 36.1
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
== END 2023-11-25 15:46 | disposition home or self-care (01) ==
PROVIDERS: PCP Family Medicine; Visit Provider Nurse Practitioner
DX: K21.9 Gastro-esophageal reflux disease without esophagitis (principal); K58.9 Irritable bowel syndrome, unspecified; E73.9 Lactose intolerance, unspecified
CPT/HCPCS: 99213

== ENCOUNTER → 2023-11-24 16:05 | Outpatient (BNVA) | payer OTHER, SELFPAY | PROVIDERS: PCP Family Medicine; Visit Provider Nurse Practitioner | DX: K21.9 Gastro-esophageal reflux disease without esophagitis (principal); K58.9 Irritable bowel syndrome, unspecified; E73.9 Lactose intolerance, unspecified | CPT/HCPCS: 99212 ==

== ENCOUNTER 2024-08-01 13:16 | Outpatient (AMB) | payer OTHER, SELFPAY ==
[2024-08-01 13:21] VITALS: BP 151/87; PULSE 72; BMI 33.1
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
--- OUTSIDE RECORDS SUMMARY | 2024-08-01 15:35 | XMS_ITS | Encounter Summary ---
Author Organization [facility] Address [address] [place] [id number] Phone Care Team Providers Care Production Recovery Operator Name Role Phone Zhanna Bull MD Primary Care Provider [phone] Encounter Details Date Type Department Care Team (Late st Contact Info) Description 03/04/2017 Conversion Encounter [facility] [place] [address] [place] [address] Social History Tobacco Use Types Packs/Day Years Used Date Smoking Tobacco: Never Assessed Sex and Gender Information Value Date Recorded Sex Assigned at Not on file Legal Sex Male 4:11 PM EDT Gender Identity Not on file Sexual Orientation Not on file documented as of this encounter Plan of Treatment Not on file documented as of this encounter Visit Diagnoses Not on filedocumented in this encounter Care Teams Production Recovery Operator Relationship Specialty Start Date End Date Zhanna Bull MD [address] [place] [address] PCP - General 12/11/16 06/18/22 documented as of this encounter
--- OUTSIDE RECORDS SUMMARY | 2024-08-01 15:35 | XMS_ITS | Encounter Summary ---
Author Name [facility] [facility] [place] Address [address] [place] [address] Support Name Relationship Address Phone MARY JANE BENAVIDES Next of Kin [address] [place] [address] BLACK, UNKNOWN Emergency Contact Unknown Unavaila ble Care Team Providers Care Anodic Operator Name Role Phone RICA AVILEZ Primary Care Provider Unavailabl e Insurance Providers: All historical and current Section Date Range: From patient's date of to the date document was created. This section includes the names of all active insurance providers for the patient. Insurance Provider Type of Coverage Plan Name Start of Policy Coverage End of Policy Coverage Group Number Member ID Insurance Provider's Telephone Number Policy Dickinson's Name Patient's Relationship to Policy Dickinson [place] [employer] [place] May 03, 2020 [id number] MERCEDES ARAUJO JOHANNA PATIENT Selected Encounter This section includes the information on record at [place] for the Encounter. Date/Time Encounter Type Encounter Description Reason Provider Source September 08, 2023 01:00 PM OFFICE O/P EST LOW 20 MIN PRIMARY CARE/MEDICINE ICD-10-CM M25.50 Pain in unspecified joint RICA AVILEZ Encounter Template Text not used by [place] Assessments - Encounter Diagnoses This section includes the primary and secondary diagnoses documented for the Encounter. Date/Time Primary/Secondary Diagnosis Diagnosis Name Provider Source September 08, 2023 01:59 PM PRIMARY Pain in unspecified joint RICA AVILEZ September 08, 2023 01:59 PM SECONDARY Gastro-esophageal reflux disease without esophagitis RICA AVILEZ September 08, 2023 01:59 PM SECONDARY Irritable bowel syndrome with diarrhea RICA AVILEZ September 08, 2023 01:59 PM SECONDARY Obesity, unspecified RICA AVILEZ [place] Lab Results: +/- 30 days of the encounter This section includes the Chemistry and Hematology Lab Results on record with [place] for the patient. Radiology Reports and Pathology Reports are provided separately, in subsequent sections. Lab Results This section contains the Chemistry/Hematology Results that were resulted 30 days before or 30 daysafter the date of the Encounter. Date/Time Source Result Type Result - Unit Interpretation Reference Range Comment September 03, 2023 08:48 AM [facility] TSH Specimen Type: SERUM No comment entered. Ordering Provider: RICA AVILEZ Report Released Date/Time: Aug 27, 2023 11:22 AM Reporting Lab: [address] [address] Performing Lab: [address] [address] TSH 1.31 u[IU]/mL 0.35-5.00 September 03, 2023 08:48 AM [facility] HEMOGLOBIN A1C PANEL Specimen Type: BLOOD Comment: Values obtained from A1C measurements can vary. For atypical A1C assays, a reported value of 7.0 could actually be between 6.72 and 7.28 if measured by a reference method. A reported value of 9.0 could actually be between 8.73 and 9.27. Ref: http://www.ngs p.org/CAPdata. asp Ordering Provider: RICA AVILEZ Report Released Date/Time: Aug 27, 2023 11:22 AM Reporting Lab: [facility] [address] [address] Performing Lab: [facility] [address] HEMOGLOBIN A1C 5.1 4.0-5.6 September 03, 2023 08:48 AM [facility] LIVER FUNCTION Specimen Type: SERUM No comment entered. Ordering Provider: RICA AVILEZ Report Released Date/Time: Aug 27, 2023 11:22 AM Reporting Lab: [facility] [address] Performing Lab: [facility] [address] [facility] [address] PROTEIN,TOTAL 7.7 g/dL 6.0-8.3 ALBUMIN 4.5 g/dL 3.5-5.0 ALKALINE PHOSPHATASE 85 U/L 40-150 AST 18 U/L 5-34 ALT 21 U/L BILIRUBIN, TOTAL 0.3 mg/dL 0.2-1.2 September 03, 2023 08:48 AM [facility] BASIC METABOLIC PANEL (fasting) Specimen Type: SERUM No comment entered. Ordering Provider: RICA AVILEZ Report Released Date/Time: Aug 27, 2023 11:22 AM Reporting Lab: [facility] [address] [facility] [address] Performing Lab: [address] [address] UREA NITROGEN 18 mg/dL 7-25 GLUCOSE 88 mg/dL 65-100 SODIUM 141 mmol/L 135-145 POTASSIUM 4.3 mmol/L 3.5-5.0 CHLORIDE 103 mmol/L 100-110 CO2 26 meq/L 20-30 CREATININE, Serum 0.85 mg/dL 0.50-1.40 eGFR(CKD-EPI 2020) >90 mL/min >60 September 03, 2023 08:48 AM [facility] LIPID PANEL FASTING Specimen Type: SERUM No comment entered. Ordering Provider: RICA AVILEZ Report Released Date/Time: Aug 27, 2023 11:22 AM Reporting Lab: [address] [address] Performing Lab: [address] [address] CHOLESTEROL 210 mg/dL H TRIGLYCERIDE 108 mg/dL 0-150 LDL calculated 147 mg/dL H 0-129 CHOL/HDL 5.1 HDL CHOLESTEROL 41 mg/dL 40-60 September 03, 2023 08:48 AM [facility] CBC AND DIFF (AUTO) Specimen Type: BLOOD No comment entered. Ordering Provider: RICA AVILEZ Report Released Date/Time: Aug 27, 2023 11:22 AM Reporting Lab: [facility] [address] [facility] [address] Performing Lab: [facility] [address] [facility] [address] WBC 9.54 10*3/uL 4.50-11.00 RBC 5.35 10*6/uL 4.23-5.66 HGB 14.8 g/dL 12.8-17 HCT 44.3 39.2-50.4 MCV 82.8 fL 82-99 MCHC 33.4 g/dL 30.8-35.1 PLT 259 10*3/uL 140-360 RDW-CV 12.9 12.0-16.0 [place], Abs 0.60 10*3/uL 0.30-1.10 MCH 27.7 pg 26.2-32.6 Neut % 61.5 43.7-75.8 Lymph % 30.6 14.0-42.3 [place] % 6.3 5.1-13.7 Eos % 0.7 0.4-6.8 Baso % 0.6 0.1-2.0 Neut, Abs 5.86 10*3/uL 2.20-7.60 Lymph, Abs 2.92 10*3/uL 1.00-3.20 Eos, Abs 0.07 10*3/uL 0.03-0.44 Baso, Abs 0.06 10*3/uL 0.01-0.13 Immature Gran % 0.3 0.0-0.7 Immature Gran, Abs 0.03 10*3/uL 0.00-0.06 Social History: Smoking Status (Most current) and Tobacco Use (All prior to encounter date) This section includes the most current, and the historical, smoking and tobacco- related health factors from the [place] facility where the Encounter took place. Current Smoking Status This section includes the most current smoking, or tobacco-related health factor, from the [place] facility where the Encounter took place. Date/Time Current Smoking Status Comment Facil ity September 08, 2023 01:00 PM [place]-TOBACCO QUIT 5 TO < 15 YRS [place] Tobacco Use History This section includes a history of the smoking, or tobacco-related health factors, that were collected on or before the date of the Encounter. The data comes from the [place] facility where the Encounter took place. Date/Time Smoking Status/Tobacco Use Comment F acility September 08, 2023 01:00 PM VA-TOBACCO QUIT 5 TO < 15 YRS [place] September 07, 2022 01:00 PM VA-TOBACCO FORMER USER [place] September 07, 2022 01:00 PM VA-TOBACCO QUIT < 1 YEAR [place] September 22, 2021 03:00 PM VA-TOBACCO USE 5 TO 15 YEARS [place] September 22, 2021 03:00 PM VA-TOBACCO USE ADVICE [place] September 22, 2021 03:00 PM VA-TOBACCO USE PART MAKER NO [place] September 22, 2021 03:00 PM VA-TOBACCO USE MED NO [place] September 22, 2021 03:00 PM VA-TOBACCO USE WI 30 MIN OF WAKEUP [place] September 22, 2021 03:00 PM VA-TOBACCO USER EVERY DAY [place] Feb 08, 2020 10:00 AM VA-TOBACCO DOESNT USE WI 30 MIN [place] Feb 08, 2020 10:00 AM VA-TOBACCO USE 5 TO 15 YEARS [place] Feb 08, 2020 10:00 AM VA-TOBACCO USE ADVICE [place] Feb 08, 2020 10:00 AM VA-TOBACCO USE PART MAKER YES states he would like to quit. [place] Feb 08, 2020 10:00 AM VA-TOBACCO USE MED NOTIFY PROVIDER [place] Feb 08, 2020 10:00 AM VA-TOBACCO USER EVERY DAY [place] Jul 12, 2017 09:14 AM CURRENT SMOKER 1/4 PACK DAILY [place] Jul 12, 2017 09:14 AM V1-PT READY TO ISELA T TOBACCO USE [place] Advance Directives: All historical and current Section Date Range: From patient's date of to the date document was created. This section includes ALL of a patient's completed or amended [place] Advance and Rescinded Directives. The entries below indicate that a directive exists for the patient, but an actual copy is not included with this document. The data comes from all [place] facilities. Date Advance Directives Provider Source Oct 21, 2017 ADVANCE DIRECTIVE ALEX AWAN [place] Encounter Notes: All associated encounter notes This section contains the clinical notes associated to the Encounter. Date/Time Encounter Note(s) Provider Source September 08, 2023 01:01 PM PREVENTIVE MEDICIN E NURSING NOTE: LOCAL TITLE: CLINICAL REMINDERS/NURSING STANDARD TITLE: PREVENTIVE MEDICINE NURSING NOTE DATE OF NOTE: SEPTEMBER 08, 2023@13:01 ENTRY DATE: SEPTEMBER 08, 2023@13:01:09 AUTHOR: WIN QUINONES COSIGNER: URGENCY: STATUS: COMPLETED Advance Directive Screen MH AD: Patient has an Advance Directive on file at this [facility]. No updates are needed at this time. The patient received education about Advance Directives and written notification of his/her rights. Homelessness/Food Insecurity Screen: In the past 2 months, have you been living in stable housing that you own, rent, or stay in as part of a household? Yes - Living in stable housing. Are you worried or concerned that in the next 2 months you may NOT have stable housing that you own, rent, or stay in as part of a household? No - Not worried about housing near future The [place] reports the following: Within the past 12 months, you worried whether your food would run out before you got money to buy more. Never true Within the past 12 months, the food you bought just didn't last and you didn't have money to get more. Never true PTSD Screening: PC-PTSD-5 A PTSD screening test (PC-PTSD-5) was negative (score=0). IN THE PAST MONTH, have you ever had any experience that was so frightening, horrible or traumatic. For example: A serious accident or fire a physical or sexual assault or abuse An earthquake or flood A war Seeing someone be killed or seriously injured Having a loved one through homicide or suicide 1. Have you ever experienced this kind of event? NO 2. Had nightmares about the event(s) or thought about the event(s) when you did not want to? Response not required due to responses to other questions. 3. Tried hard not to think about the event(s) or went out of your way to avoid situations that reminded you of the event(s)? Response not required due to responses to other questions. 4. Been constantly on guard, watchful, or easily startled? Response not required due to responses to other questions. 5. [place] numb or detached from people, activities, or your surroundings? Response not required due to responses to other questions. 6. [place] guilty or unable to stop blaming yourself or others for the event(s) or any problems the event(s) may have caused? Response not required due to responses to other questions. Tobacco Use Screening: The patient is a former tobacco user. The patient quit five to less than fifteen years ago. Influenza Immunization: The patient declines to receive the recommended dose of seasonal influenza vaccine. Immunization: INFLUENZA, UNSPECIFIED FORMULATION Refusal Reason: PATIENT DECISION Patient refuses all immunization(s) in the FLU group Date Documented: 09/08/23 13:02 Alcohol Use Screen (AUDIT-C): Alcohol Screen: SCREEN FOR ALCOHOL (AUDIT-C) An alcohol screening test (AUDIT-C) was negative (score=0). 1. How often did you have a drink containing alcohol in the past year? Consider a drink to be a 12 ounce can or bottle of regular beer, 8 ounces of malt liquor, a 5 ounce glass of table wine, or a 1.5 ounce shot of liquor (like scotch, gin, or vodka). Never 2. How many drinks containing alcohol did you have on a typical day when you were drinking in the past year? Response not required due to responses to other questions. 3. How often did you have six or more drinks on one occasion in the past year? Response not required due to responses to other questions. COVID-19 Immunization: Defer vaccine, reassess in 1 year Reason: decline /es/ WIN QUINONES LPN PACT 10 Signed: 09/08/2023 13:04 WIN QUINONES [place] September 08, 2023 08:55 AM PHYSICIAN NOTE: LOCAL TITLE: MD NOTE STANDARD TITLE: PHYSICIAN NOTE DATE OF NOTE: SEPTEMBER 08, 2023@08:55 ENTRY DATE: SEPTEMBER 08, 2023@08:55:49 AUTHOR: RICA AVILEZ EXP COSIGNER: URGENCY: STATUS: COMPLETED HISTORY OF PRESENT ILLNESS: ARCELIA ARAUJO, is a 33 yo MALE [place], who presents at the [facility] for his annual wellness exam. Labs completed. Active problems - Computerized Problem List is the source for the followin. H/O: vasectomy 2. Housing adequate 3. Housing lack 4. Hypertriglyceridemia 5. Gastroesophageal reflux disease 6. Irritable bowel syndrome with diarrhea 7. Herpes Simplex II 8. Convergence insufficiency 9. Colonoscopy Screening 10. Vitamin D deficiency 11. Obesity The following VA and Non-VA meds were reconciled with patient: Active Outpatient Medications (including Supplies): Issue Date Status Last Fill Active Outpatient Medications Refills Expiration ======= 1) MELOXICAM 15MG TAB Qty: 45 for 90 days ACTIVE Issu:09-07-22 Sig: TAKE ONE-HALF TABLET BY MOUTH Refills: 0 Last:11-26-22 ONCE DAILY Expr:09-08-23 2) OMEPRAZOLE 20MG EC CAP Qty: 90 for 90 ACTIVE Issu:11-15-22 days Sig: TAKE ONE CAPSULE BY MOUTH Refills: 0 Last:02-03-23 EVERY MORNING 30 MINUTES BEFORE Expr:11-16-23 BREAKFAST Start Date Active Non-VA Medications Refills Expiration ======= 1) Non-VA FISH OIL 1000MG (500MG DHA/EPA) ACTIVE CAP SiMG BY MOUTH TWICE DAILY 2) Non-VA IBUPROFEN 600MG TAB SiMG ACTIVE BY MOUTH WEEKLY 4 Total Medications ALLERGIES: ========= Patient has answered NK[facility] LAB HISTORY: CHEM 7 TREND Collection DT Spec GLUCOSE BUN CREATIN Sodium K+/Pot CL CO2 09/03/2023 08:48 SERUM 88 18 0.85 141 4.3 103 26 09/19/2021 09:12 SERUM 88 15 0.89 141 4.2 103 29 09/02/2020 10:17 SERUM 89 12 0.85 140 4.1 104 28 10/20/2017 09:37 SERUM 83 10 0.86 140 4.2 102 27 09/21/2017 15:01 SERUM 85 10 0.81 142 4.3 104 28 CBC TREND Collection DT Spec WBC RBC HGB HCT MCV MCH PLT 09/03/2023 08:48 BLOOD 9.54 5.35 14.8 44.3 82.8 27.7 259 09/19/2021 09:12 BLOOD 13.17 H 5.26 14.2 43.8 83.3 27.0 313 10/29/2020 13:00 BLOOD 10.77 5.03 14.2 42.5 84.5 28.2 254 09/02/2020 10:17 BLOOD 10.34 4.98 14.0 42.5 85.3 28.1 275 10/20/2017 09:37 BLOOD 11.12 H 5.29 14.6 43.6 82.4 27.6 290 HEMOGLOBIN A1C TREND Collection DT Spec HGBA1c 09/03/2023 08:48 BLOOD 5.1 09/19/2021 09:12 BLOOD 5.4 09/02/2020 10:17 BLOOD 5.3 10/20/2017 09:37 BLOOD 5.5 LIPID PANEL TREND Collection DT Spec CHOL HDL CHO/HDL LDL-c TRIG 09/03/2023 08:48 SERUM 210 H 41 5.1 147 H 108 09/19/2021 09:12 SERUM 196 28 L 7.0 123 225 H 09/02/2020 10:17 SERUM 169 27 L 6.3 106 179 H 10/20/2017 09:37 SERUM 181 35 L 5.2 124 111 LIVER PANEL TREND Collection DT Spec AST ALT T BILI ALK JAMEY T. PROT ALBUMIN 09/03/2023 08:48 SERUM 18 21 0.3 85 7.7 4.5 09/19/2021 09:12 SERUM 15 20 0.3 90 7.5 4.1 10/29/2020 13:00 SERUM 20 26 09/02/2020 10:17 SERUM 15 23 0.3 84 7.1 4.0 10/20/2017 09:37 SERUM 19 26 0.6 103 7.8 4.5 Collection DT Spec TSH 09/03/2023 08:48 SERUM 1.31 HISTORY: PERIOD OF SERVICE - [facility] Ready To Travel [employer] FROM Jan TO Jan COMBAT SERVICE INDICATED: No VITAL SIGNS: Blood Pressure 149/81 (09/08/2023 13:00) Pulse 78 (09/08/2023 13:00) Respiration 16 (09/08/2023 13:00) Pulse Oximetry 99% (09/08/2023 13:00) Temperature 97.9 F [36.6 C] (09/08/2023 13:00) Pain 0 (09/08/2023 13:00) Height 68 in [172.7 cm] (09/08/2023 13:00) Weight 227 lb [102.97 kg] (09/08/2023 13:00) BMI BMI: 34.6 REVIEW OF SYSTEMS: ENT: No sore throat, no cough CARDIOVASCULAR: No chest pain, no palpitations RESPIRATORY: No SOB, no wheezing GASTROINTESTINAL: No abd pain, no N/V/D GENITOURINARY: No dysuria, no hematuria MUSCULOSKELETAL: +multiple joint pain, no joint swelling PSYCHIATRIC: No anxiety, no trouble sleeping, no depression NEUROLOGIC: No H/A, no numbness, no weakness, no tingling EXAMINATION: GENERAL: WD/WN , pleasant & in NAD HEENT: Moist mucosa NECK: Supple, no carotid bruits HEART: RRR, S1-S2, no murmurs LUNGS: CTA B/L, no wheezes ABDOMEN: Soft, NT/ND, no HSM, + BS x 4 Quads PERIPH PULSES: 2+ B/L EXTREMITIES: FROM x 4, no edema, gait normal NEUROLOGIC: AAO x3, no focal neurological deficits PSYCHIATRIC: Good eye contact, affect normal, well dressed/groomed ASSESSMENT/PLAN: Adult Annual General Wellness Exam -advised eye exams yearly and dental exams Q6 mths -advised heart healthy well balanced diet and lifestyle habits -advised regular CV exercise for 30 mins on most days of the week 1. Hypertriglyceridemia: advised to reduce saturated fats in diet and cont 2 caps fish oil daily Collection DT Spec CHOL HDL CHO/HDL LDL-c TRIG 09/03/2023 08:48 SERUM 210 H 41 5.1 147 H 108 09/19/2021 09:12 SERUM 196 28 L 7.0 123 225 H 09/02/2020 10:17 SERUM 169 27 L 6.3 106 179 H 2. Obesity: BMI ~35, counseled on weight loss 3. IBS: on dicyclomine 20mg BID, has sister w/similar sxs, followed by Dr Kimberly Dash/GI ([facility]) 4. GERD: on omeprazole 20mg BID 5. Erectile Dysfunction: on sildenafil 100mg/day 6. Tobacco Dependence: quit 05/2022 - restarted a week ago due to stress (trying to find a new job bc he got laid off w/o warning), he plans to quit a gain 7. Cannabis Dependence: quit 05/2022 8. Multiple Joint Pain: on meloxicam 7.5mg/day w/food FOLLOW UP 1 year - AWE - FBW prior ========= No barriers; Patient understands and agrees to current treatment plan. If pt has any questions, concerns, or changes in current health status he/she will call or come in to the [facility]. BMI>30/>24.99 High Risk: Patient declines to discuss weight management. Patient declined weight discussion. Discussed revisiting at a future visit. Medication Reconciliation: Outpatient: Has the patient been taking medications as documented in the EMLR? YES: The patient has been taking medications as documented in the EMLR. Essential Medication List for Review used to complete this medication reconciliation. INCLUDED IN THIS LIST: Alphabetical list of active outpatient prescriptions dispensed from this [place] (local) and dispensed from another [place] or [facility] facility (remote) as well as inpatient orders (local, pending and active), local clinic medications, locally documented non-VA medications, and local prescriptions that have or been discontinued in the past 90 days. - All changes in medications, including all non-VA/Herbal/OTC medications were entered into CPRS. - If there were any medications the patient should no longer take, they were discontinued. - The patient/caregiver was instructed to update this list, discard old lists, and take this list to the next appointment, whether with a VA or non-VA provider. JLV Link Data on this list may not be complete. Please check JLV. Allergies/ADRs (Tool #5) FACILITY ALLERGY/ADR -------- [facility] [place] [facility] No Known Allergies [facility] NO KNOWN ALLERGIES Med Recon NoGlossary (Tool #1) INCLUDED IN THIS LIST: Alphabetical list of active outpatient prescriptions dispensed from this [place] (local) and dispensed from another [place] or [facility] facility (remote) as well as inpatient orders (local pending and active), local clinic medications, locally documented non-VA medications, and local prescriptions that have or been discontinued in the past 90 days. Non-VA Meds Last Documented On: Dec 11, 2021 NOTE The display of VA prescriptions dispensed from another [place] or [facility] facility (remote) is limited to active outpatient prescription entries matched to National Drug File at the originating site and may not include some items such as investigational drugs, compounds, etc. NOT INCLUDED IN THIS LIST: Medications self-entered by the patient into personal health records (i.e. [employer]) are NOT included in this list. Non-VA medications documented outside this [place], remote inpatient orders (regardless of status) and remote clinic medications are NOT included in this list. The patient and provider must always discuss medications the patient is taking, regardless of where the medication was dispensed or obtained. ------ Non-VA FISH OIL 1000MG (500MG DHA/EPA) CAP TAKE 1 CAPSULE BY MOUTH TWICE DAILY Non-VA IBUPROFEN 600MG TAB TAKE ONE TABLET BY MOUTH WEEKLY OUTPT MELOXICAM 15MG TAB (Status = Active) TAKE ONE-HALF TABLET BY MOUTH ONCE DAILY Rx# [id number] Last Released: 11/18/22 Qty/Days Supply: Rx Expiration Date: 09/08/23 Refills Remainin Indication: FOR JOINT INFLAMMATION OUTPT OMEPRAZOLE 20MG EC CAP (Status = Active) TAKE ONE CAPSULE BY MOUTH EVERY MORNING 30 MINUTES BEFORE BREAKFAST Rx# [id number] Last Released: 01/30/23 Qty/Days Supply: Rx Expiration Date: 11/16/23 Refills Remainin Indication: FOR HEARTBURN ------ SUPPLIES ------ /nica/ RICA AVILEZ MD Primary Care Physician Signed: 09/08/2023 14:00 RICA AVILEZ
--- OUTSIDE RECORDS SUMMARY | 2024-08-01 15:35 | XMS_ITS | Clinical Summary ---
Author Organization [facility] Address [address] [place] [id number] Phone Care Team Providers Care Aluminum Shingle Roofer Name Role Phone Unavailable Primary Care Provider Unavailabl e Immunizations Immunization Administration Dates Next Due DTP 12/22/1994, 3,08/11/1991,1990,02/23/1990,1989 Hep B, ped/adol 04/13/1995,10/01/1994,08/28/1994 Hib (PRP-T) 12/14/1990,07/05/1990 MMR 08/28/1994,12/14/1990 OPV 12/22/1994, 3,08/11/1991,1989,1989 Td (adult) (MBL), 2 Lf tetan us toxoid, PF, adsorbed 12/28/2000 Varicella 02/07/2004 Social History Tobacco Use Types Packs/Day Years Used Date Smoking Tobacco: Never Assessed Sex and Gender Information Value Date Recorded Sex Assigned at Not on file Legal Sex Male 4:11 PM EDT Gender Identity Not on file Sexual Orientation Not on file Plan of Treatment Health Maintenance Due Date Last Done Comments DTaP,Tdap,and Td Vaccines (6 - Tdap) 12/29/2000 12/28/2000, 12/22/1994, 01/01/1993, Additional history exists Varicella Vaccines (2 of 2 - 13+ 2-dose series) 03/06/2004 02/07/2004 Influenza Vaccines (#1) 2023 COVID-19 Vaccine ( - 2023- season) 2024 HIB Vaccines Completed 12/14/1990, 07/05/1990 MMR Vaccines Completed 08/28/1994, 12/14/1990 IPV Vaccines Completed 12/22/1994, 0905/1992, 08/11/1991, Additional history exists Hepatitis B Vaccines Completed 04/13/1995, 10/01/1994, 08/28/1994 HPV Vaccines Aged Out No longer eligi ble based on patient's age to complete this topic Hepatitis A Vaccines Aged Out No long er eligible based on patient's age to complete this topic Men B Vaccine Aged Out No longer elig ible based on patient's age to complete this topic Meningococcal Vaccine Aged Out No tiffany sabas eligible based on patient's age to complete this topic Pneumococcal Vaccine Aged Out No long er eligible based on patient's age to complete this topic
--- OUTSIDE RECORDS SUMMARY | 2024-08-01 15:35 | XMS_ITS | Continuity of Care Document ---
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 It does not include entries that were removed or entered in error. Problem Status Onset Date Problem Type Date of Resolution Comments Source Colonoscopy Screening Active Condition Oct 21, 2018 Entered By: RICA AVILEZ Comment: 07/18/18 - Dx diarrhea of unknown origin, bowel prep inadequate, no clear etiology for diarrhea noted, nonspecific changes - Dr Jony Barbzoa [facility] Convergence insufficiency Active Condition [facility] Gastroesophageal reflux disease Active Condition [facility] H/O: vasectomy Active Condition September 012021 Entered By: RICA AVILEZ Comment: 08/2021 - [facility] [place] Herpes Simplex II Active Condition [facility] Housing adequate Active Condition [facility] [place] Housing lack Active Condition [facility] Hypertriglyceridemia Active Condition [facility] [place] Irritable bowel syndrome with diarrhea Active Condition [facility] Obesity Active Condition [facility] Vitamin D deficiency Active Condition [facility] Diagnosis: ICD-10-CM M25.50 Pain in unspecified joint Active Diagnosis [facility] Diagnosis: ICD-10-CM Z46.0 Encounter for fit/adjst of spectacles and contact lenses Active Diagnosis [facility] Diagnosis: ICD-10-CM S06.0X1S Concussion w LOC of 30 minutes or less, sequela Active Diagnosis [facility] Diagnosis: ICD-10-CM F32.9 Major depressive disorder, single episode, unspecified Active Diagnosis [facility] Diagnosis: ICD-10-CM Z02.89 Encounter for other administrative examinations Active Diagnosis [facility] Medications Combined list of outpatient medications from Department of Defense and Veterans Affairs facilities.Medications provided include 1) outpatient medications from the last 15 months, and 2) patient-reported medications. Medication Details Route Status Patient Instructions Prescription Expires Prescription Number Last Dispense Date Ordering Provider Order Date Order Qty Source DICYCLOMINE HCL 20MG TAB TAKE ONE TABLET BY MOUTH TWICE DAILY (FOR IRRITABL E BOWEL SYNDROME ) ORAL ACTIVE 09/08/2024 [id number] SILVIA AVILEZ SA 2023 180 [place] FISH OIL 1000MG (500MG DHA/EPA) CAP,ORAL TAKE 1 CAPSULE BY MOUTH TWICE DAILY ORAL ACTIVE [place] ICE 2021 [facility] FLUTICASONE PROPIONATE 50MCG/SPRAY SOLN,NASAL, 16GM INSTILL 2 SPRAYS INTO EACH NOSTRIL ONCE DAILY FOR NASAL IRRITATI ON/INFLA MMATION NASAL ACTIVE 09/08/2024 [id number] 4 SILVIA AVILEZ SA 2023 3 [place] IBUPROFEN 600MG TAB TAKE ONE TABLET BY MOUTH WEEKLY ORAL ACTIVE SILVIA AVILEZ SA 2017 [facility] MELOXICAM 15MG TAB TAKE ONE-HALF TABLET BY MOUTH ONCE DAILY ORAL ACTIVE 11/22/2024 [id number] 5 SILVIA AVILEZ SA 2023 45 [place] MELOXICAM 15MG TAB TAKE ONE-HALF TABLET BY MOUTH ONCE DAILY ORAL DISCONT INUED 09/08/2024 [id number] 4 SILVIA AVILEZ SA 2023 45 [place] OMEPRAZOLE 20MG CAP,EC TAKE ONE CAPSULE BY MOUTH TWICE DAILY FOR HEARTBUR N ORAL ACTIVE 09/08/2024 [id number] 5 SILVIA AVILEZ SA 2023 180 [place] Immunizations Combined list of available immunizations from the Department of Defense and Veterans Affairs facilities. Immunization Series Date Given Administered By Site Reaction Lot Number CVX Code Drug Valet Manager Status Comments Source HEP A, ADULT 1 2022 ANTONINO QUINONES ON M LEFT DELTO ID [id number] 52 complet ed [place] COVID-19 (MODERNA), MRNA, LNP-S, PF, 100 MCG OR 50 MCG DOSE 2 2020 207 complet ed MOD; [id number]; 2 [place] COVID-19 (MODERNA), MRNA, LNP-S, PF, 100 MCG/0.5 ML DOSE 1 2020 207 complet ed MOD; [id number]; 1 [place] INFLUENZA, UNSPECIFIED FORMULATION 2020 88 complet ed [facility] INFLUENZA, INJECTABLE, QUADRIVALENT, PRESERVATIVE FREE 2019 150 complet ed [place] TD(ADULT) UNSPECIFIED FORMULATION 2019 139 complet ed Site: Right Deltoid [place] MMR 2017 03 complet ed [place] INFLUENZA, SEASONAL, INJECTABLE 2016 141 complet ed [facility] DTAP, UNSPECIFIED FORMULATION 2009 107 complet ed [facility] Results Combined list of recent chemistry, hematology and other laboratory results from Department of Defense and Veterans Affairs, ranging from 15 months to all on record, depending upon the facility. Order Name Results Value Reference Range Date Interpretation Specimen Comments Source TSH THYROTROPIN [UNITS/VOLU ME] IN SERUM OR PLASMA 1.31 u[IU]/ mL 0.35 - 5.00 09/02 Specimen Type: SERUM No comment entered. Ordering Provider: RICA AVILEZ Report Released Date/Time: Aug 27, 2023 11:22 AM Reporting Lab: [facility] [employer] [facility] [address] [address] Performing Lab: [facility] [employer] [facility] [address] [address] [facility] HEMOGLOBI N A1C PANEL HEMOGLOBIN A1C/HEMOGLO BIN.TOTAL IN BLOOD BY HPLC 5.1 4.0 - 5.6 09/02 Specimen Type: BLOOD Comment: Values obtained from A1C measurement s can vary. For atypical A1C assays, a reported value of 7.0 could actually be between 6.72 and 7.28 if measured by a reference method. A reported value of 9.0 could actually be between 8.73 and 9.27. Ref: http://www. ngsp.org/[place] Pdata.asp Ordering Provider: RICA AVILEZ Report Released Date/Time: Aug 27, 2023 11:22 AM Reporting Lab: [facility] [place] [facility] [address] [address] Performing Lab: [facility] [place] [address] [address] [place], [place] [address] [facility] [place] [facility] LIVER FUNCTION PROTEIN [MASS/VOLUM E] IN SERUM OR PLASMA 7.7 g/dL 6.0 - 8.3 09/02 Specimen Type: SERUM No comment entered. Ordering Provider: RICA AVILEZ Report Released Date/Time: Aug 27, 2023 11:22 AM Reporting Lab: [facility] [place] [facility] [address] [address] Performing Lab: [facility] [place] [facility] [address] [address] [facility] [place] [facility] LIVER FUNCTION ALBUMIN [MASS/VOLUM E] IN SERUM OR PLASMA 4.5 g/dL 3.5 - 5.0 09/02 Specimen Type: SERUM No comment entered. Ordering Provider: RICA AVILEZ Report Released Date/Time: Aug 27, 2023 11:22 AM Reporting Lab: [facility] [place] [facility] [address] [address] Performing Lab: [facility] [place] [address] [address] [facility] [facility] LIVER FUNCTION ALKALINE PHOSPHATASE [ENZYMATIC ACTIVITY/VO LUME] IN SERUM OR PLASMA 85 U/L 40 - 150 09/02 Specimen Type: SERUM No comment entered. Ordering Provider: RICA AVILEZ Report Released Date/Time: Aug 27, 2023 11:22 AM Reporting Lab: [facility] [place] [facility] [address] [address] Performing Lab: [facility] [place] [facility] [address] [address] [facility] [facility] LIVER FUNCTION ASPARTATE AMINOTRANSF ERASE [ENZYMATIC ACTIVITY/VO LUME] IN SERUM OR PLASMA 18 U/L 5 - 34 09/02 Specimen Type: SERUM No comment entered. Ordering Provider: RICA AVILEZ Report Released Date/Time: Aug 27, 2023 11:22 AM Reporting Lab: [facility] [place] [facility] [address] [address] Performing Lab: [facility] [place] [facility] [address] [address] [facility] [place] [facility] LIVER FUNCTION ALANINE AMINOTRANSF ERASE [ENZYMATIC ACTIVITY/VO LUME] IN SERUM OR PLASMA 21 U/L 09/02 Specimen Type: SERUM No comment entered. Ordering Provider: RICA AVILEZ Report Released Date/Time: Aug 27, 2023 11:22 AM Reporting Lab: [facility] [place] [facility] [address] [address] Performing Lab: [facility] [place] [facility] [address] [address] [facility] [place] [facility] LIVER FUNCTION BILIRUBIN.T OTAL [MASS/VOLUM E] IN SERUM OR PLASMA 0.3 mg/dL 0.2 - 1.2 09/02 Specimen Type: SERUM No comment entered. Ordering Provider: RICA AVILEZ Report Released Date/Time: Aug 27, 2023 11:22 AM Reporting Lab: [facility] [place] [facility] [address] [address] Performing Lab: [facility] [place] [facility] [address] [address] [facility] [facility] BASIC METABOLIC PANEL (fasting) UREA NITROGEN [MASS/VOLUM E] IN SERUM OR PLASMA 18 mg/dL 7 - 25 09/02 Specimen Type: SERUM No comment entered. Ordering Provider: RICA AVILEZ Report Released Date/Time: Aug 27, 2023 11:22 AM Reporting Lab: [facility] [place] [facility] [address] [address] Performing Lab: [facility] [place] [facility] [address] [address] [facility] [place] [facility] BASIC METABOLIC PANEL (fasting) GLUCOSE [MASS/VOLUM E] IN SERUM OR PLASMA 88 mg/dL 65 - 100 09/02 Specimen Type: SERUM No comment entered. Ordering Provider: RICA AVILEZ Report Released Date/Time: Aug 27, 2023 11:22 AM Reporting Lab: [facility] [place] [facility] [address] [address] Performing Lab: [facility] [place] [place] [facility] [address] [address] [facility] [place] [place] [facility] BASIC METABOLIC PANEL (fasting) SODIUM [MOLES/VOLU ME] IN SERUM OR PLASMA 141 mmol/L 135 - 145 09/02 Specimen Type: SERUM No comment entered. Ordering Provider: RICA AVILEZ Report Released Date/Time: Aug 27, 2023 11:22 AM Reporting Lab: [facility] [place] [facility] [address] [address] Performing Lab: [facility] [place] [facility] [address] [address] [facility] [place] [facility] BASIC METABOLIC PANEL (fasting) POTASSIUM [MOLES/VOLU ME] IN SERUM OR PLASMA 4.3 mmol/L 3.5 - 5.0 09/02 Specimen Type: SERUM No comment entered. Ordering Provider: RICA AVILEZ Report Released Date/Time: Aug 27, 2023 11:22 AM Reporting Lab: [facility] [place] [facility] [address] [address] Performing Lab: [facility] [place] [facility] [address] [address] [facility] [place] [facility] BASIC METABOLIC PANEL (fasting) CHLORIDE [MOLES/VOLU ME] IN SERUM OR PLASMA 103 mmol/L 100 - 110 09/02 Specimen Type: SERUM No comment entered. Ordering Provider: RICA AVILEZ Report Released Date/Time: Aug 27, 2023 11:22 AM Reporting Lab: [facility] [place] [facility] [address] [address] Performing Lab: [facility] [facility] [address] [address] [facility] [place] [facility] BASIC METABOLIC PANEL (fasting) CARBON DIOXIDE, TOTAL [MOLES/VOLU ME] IN SERUM OR PLASMA 26 meq/L 20 - 30 09/02 Specimen Type: SERUM No comment entered. Ordering Provider: RICA AVILEZ Report Released Date/Time: Aug 27, 2023 11:22 AM Reporting Lab: [facility] [place] [address] [address] Performing Lab: [facility] [place] [address] [address] [facility] [place] [facility] BASIC METABOLIC PANEL (fasting) CREATININE [MASS/VOLUM E] IN SERUM OR PLASMA 0.85 mg/dL 0.50 - 1.40 09/02 Specimen Type: SERUM No comment entered. Ordering Provider: RICA AVILEZ Report Released Date/Time: Aug 27, 2023 11:22 AM Reporting Lab: [facility] [place] [address] [address] Performing Lab: [facility] [place] [address] [address] [facility] [place] [facility] BASIC METABOLIC PANEL (fasting) GLOMERULAR FILTRATION RATE/1.73 SQ M.PREDICTED [VOLUME RATE/AREA] IN SERUM, PLASMA OR BLOOD BY CREATININE- BASED FORMULA (CKD-EPI 2020) >90mL/ min 60 09/02 Specimen Type: SERUM No comment entered. Ordering Provider: RICA AVILEZ Report Released Date/Time: Aug 27, 2023 11:22 AM Reporting Lab: [facility] [place] [address] [address] Performing Lab: [facility] [place] [address] [address] [facility] [place] [facility] LIPID PANEL FASTING CHOLESTEROL [MASS/VOLUM E] IN SERUM OR PLASMA 210 mg/dL 09/02 H Specimen Type: SERUM No comment entered. Ordering Provider: RICA AVILEZ Report Released Date/Time: Aug 27, 2023 11:22 AM Reporting Lab: [facility] [place] [address] [address] Performing Lab: [facility] [place] [address] [address] [facility] [place] [facility] LIPID PANEL FASTING TRIGLYCERID E [MASS/VOLUM E] IN SERUM OR PLASMA 108 mg/dL 0 - 150 09/02 Specimen Type: SERUM No comment entered. Ordering Provider: RICA AVILEZ Report Released Date/Time: Aug 27, 2023 11:22 AM Reporting Lab: [facility] [place] [address] [address] Performing Lab: [facility] [place] [place] [address] [address] [facility] [place] [facility] LIPID PANEL FASTING CHOLESTEROL IN LDL [MASS/VOLUM E] IN SERUM OR PLASMA BY CALCULATION 147 mg/dL 0 - 129 09/02 H Specimen Type: SERUM No comment entered. Ordering Provider: RICA AVILEZ Report Released Date/Time: Aug 27, 2023 11:22 AM Reporting Lab: [facility] [place] [address] [address] Performing Lab: [facility] [place] [place] [address] [address] [facility] [place] [facility] LIPID PANEL FASTING CHOLESTEROL .TOTAL/CHOL ESTEROL IN HDL [MASS RATIO] IN SERUM OR PLASMA 5.1 09/02 Specimen Type: SERUM No comment entered. Ordering Provider: RICA AVILEZ Report Released Date/Time: Aug 27, 2023 11:22 AM Reporting Lab: [facility] [place] [address] [address] Performing Lab: [facility] [place] [place] [facility] [address] [address] [facility] [place] [facility] LIPID PANEL FASTING CHOLESTEROL IN HDL [MASS/VOLUM E] IN SERUM OR PLASMA 41 mg/dL 40 - 60 09/02 Specimen Type: SERUM No comment entered. Ordering Provider: RICA AVILEZ Report Released Date/Time: Aug 27, 2023 11:22 AM Reporting Lab: [facility] [place] [facility] [address] [address] Performing Lab: [facility] [facility] [address] [address] [facility] [place] [facility] CBC AND DIFF (AUTO) LEUKOCYTES [#/VOLUME] IN BLOOD BY AUTOMATED COUNT 9.54 10*3/u L 4.50 - 11.00 09/02 Specimen Type: BLOOD No comment entered. Ordering Provider: RICA AVILEZ Report Released Date/Time: Aug 27, 2023 11:22 AM Reporting Lab: [facility] [place] [facility] [address] [address] Performing Lab: [facility] [place] [facility] [address] [address] [facility] [place] [facility] CBC AND DIFF (AUTO) ERYTHROCYTE S [#/VOLUME] IN BLOOD BY AUTOMATED COUNT 5.35 10*6/u L 4.23 - 5.66 09/02 Specimen Type: BLOOD No comment entered. Ordering Provider: RICA AVILEZ Report Released Date/Time: Aug 27, 2023 11:22 AM Reporting Lab: [facility] [place] [facility] [address] [address] Performing Lab: [facility] [place] [facility] [address] [address] [facility] [place] [facility] CBC AND DIFF (AUTO) HEMOGLOBIN [MASS/VOLUM E] IN BLOOD 14.8 g/dL 12.8 - 17 09/02 Specimen Type: BLOOD No comment entered. Ordering Provider: RICA AVILEZ Report Released Date/Time: Aug 27, 2023 11:22 AM Reporting Lab: [facility] [place] [facility] [address] [address] Performing Lab: [facility] [place] [facility] [address] [address] [facility] [place] [facility] CBC AND DIFF (AUTO) HEMATOCRIT [VOLUME FRACTION] OF BLOOD BY AUTOMATED COUNT 44.3 39.2 - 50.4 09/02 Specimen Type: BLOOD No comment entered. Ordering Provider: RICA AVILEZ Report Released Date/Time: Aug 27, 2023 11:22 AM Reporting Lab: [facility] [facility] [address] [address] Performing Lab: [facility] [place] [facility] [address] [address] [facility] [place] [facility] CBC AND DIFF (AUTO) MCV [ENTITIC VOLUME] BY AUTOMATED COUNT 82.8 fL 82 - 99 09/02 Specimen Type: BLOOD No comment entered. Ordering Provider: RICA AVILEZ Report Released Date/Time: Aug 27, 2023 11:22 AM Reporting Lab: [facility] [place] [facility] [address] [address] Performing Lab: [facility] [place] [facility] [address] [address] [facility] [place] [facility] CBC AND DIFF (AUTO) MCHC [MASS/VOLUM E] BY AUTOMATED COUNT 33.4 g/dL 30.8 - 35.1 09/02 Specimen Type: BLOOD No comment entered. Ordering Provider: RICA AVILEZ Report Released Date/Time: Aug 27, 2023 11:22 AM Reporting Lab: [facility] [place] [facility] [address] [address] Performing Lab: [facility] [place] [facility] [address] [address] [facility] [place] [facility] CBC AND DIFF (AUTO) PLATELETS [#/VOLUME] IN BLOOD BY AUTOMATED COUNT 259 10*3/u L 140 - 360 09/02 Specimen Type: BLOOD No comment entered. Ordering Provider: RICA AVILEZ Report Released Date/Time: Aug 27, 2023 11:22 AM Reporting Lab: [facility] [place] [facility] [address] [address] Performing Lab: [facility] [place] [facility] [address] [address] [facility] [place] [facility] CBC AND DIFF (AUTO) ERYTHROCYTE DISTRIBUTIO N WIDTH [RATIO] BY AUTOMATED COUNT 12.9 12.0 - 16.0 09/02 Specimen Type: BLOOD No comment entered. Ordering Provider: RICA AVILEZ Report Released Date/Time: Aug 27, 2023 11:22 AM Reporting Lab: [facility] [place] [facility] [address] [address] Performing Lab: [facility] [place] [facility] [address] [address] [facility] [place] [facility] CBC AND DIFF (AUTO) MONOCYTES [#/VOLUME] IN BLOOD BY AUTOMATED COUNT 0.60 10*3/u L 0.30 - 1.10 09/02 Specimen Type: BLOOD No comment entered. Ordering Provider: RICA AVILEZ Report Released Date/Time: Aug 27, 2023 11:22 AM Reporting Lab: [facility] [place] [facility] [address] [address] Performing Lab: [facility] [place] [facility] [address] [address] [facility] [place] [facility] CBC AND DIFF (AUTO) MCH [ENTITIC MASS] BY AUTOMATED COUNT 27.7 pg 26.2 - 32.6 09/02 Specimen Type: BLOOD No comment entered. Ordering Provider: RICA AVILEZ Report Released Date/Time: Aug 27, 2023 11:22 AM Reporting Lab: [facility] [place] [facility] [address] [address] Performing Lab: [facility] [place] [facility] [address] [place] [address] [facility] [place] [facility] CBC AND DIFF (AUTO) NEUTROPHILS /100 LEUKOCYTES IN BLOOD BY AUTOMATED COUNT 61.5 43.7 - 75.8 09/02 Specimen Type: BLOOD No comment entered. Ordering Provider: RICA AVILEZ Report Released Date/Time: Aug 27, 2023 11:22 AM Reporting Lab: [facility] [place] [facility] [address] [address] Performing Lab: [facility] [place] [facility] [address] [address] [facility] [place] [facility] CBC AND DIFF (AUTO) LYMPHOCYTES /100 LEUKOCYTES IN BLOOD BY AUTOMATED COUNT 30.6 14.0 - 42.3 09/02 Specimen Type: BLOOD No comment entered. Ordering Provider: RICA AVILEZ Report Released Date/Time: Aug 27, 2023 11:22 AM Reporting Lab: [facility] [place] [facility] [address] [address] Performing Lab: [facility] [place] [facility] [address] [address] [facility] [place] [facility] CBC AND DIFF (AUTO) MONOCYTES/1 00 LEUKOCYTES IN BLOOD BY AUTOMATED COUNT 6.3 5.1 - 13.7 09/02 Specimen Type: BLOOD No comment entered. Ordering Provider: RICA AVILEZ Report Released Date/Time: Aug 27, 2023 11:22 AM Reporting Lab: [facility] [place] [facility] [address] [address] Performing Lab: [facility] [place] [facility] [address] [address] [facility] [place] [facility] CBC AND DIFF (AUTO) EOSINOPHILS /100 LEUKOCYTES IN BLOOD BY AUTOMATED COUNT 0.7 0.4 - 6.8 09/02 Specimen Type: BLOOD No comment entered. Ordering Provider: RICA AVILEZ Report Released Date/Time: Aug 27, 2023 11:22 AM Reporting Lab: [facility] [place] [facility] [address] [address] Performing Lab: [facility] [place] [facility] [address] [place] [address] [facility] [place] [facility] CBC AND DIFF (AUTO) BASOPHILS/1 00 LEUKOCYTES IN BLOOD BY AUTOMATED COUNT 0.6 0.1 - 2.0 09/02 Specimen Type: BLOOD No comment entered. Ordering Provider: RICA AVILEZ Report Released Date/Time: Aug 27, 2023 11:22 AM Reporting Lab: [facility] [place] [address] [address] Performing Lab: [facility] [place] [facility] [address] [address] [facility] [place] [facility] CBC AND DIFF (AUTO) NEUTROPHILS [#/VOLUME] IN BLOOD BY AUTOMATED COUNT 5.86 10*3/u L 2.20 - 7.60 09/02 Specimen Type: BLOOD No comment entered. Ordering Provider: RICA AVILEZ Report Released Date/Time: Aug 27, 2023 11:22 AM Reporting Lab: [facility] [place] [address] [address] Performing Lab: [facility] [place] [address] [address] [facility] [place] [facility] CBC AND DIFF (AUTO) LYMPHOCYTES [#/VOLUME] IN BLOOD BY AUTOMATED COUNT 2.92 10*3/u L 1.00 - 3.20 09/02 Specimen Type: BLOOD No comment entered. Ordering Provider: RICA AVILEZ Report Released Date/Time: Aug 27, 2023 11:22 AM Reporting Lab: [facility] [place] [address] [phone] Performing Lab: [facility] [place] [address] [address] [facility] [place] [facility] CBC AND DIFF (AUTO) EOSINOPHILS [#/VOLUME] IN BLOOD BY AUTOMATED COUNT 0.07 10*3/u L 0.03 - 0.44 09/02 Specimen Type: BLOOD No comment entered. Ordering Provider: RICA AVILEZ Report Released Date/Time: Aug 27, 2023 11:22 AM Reporting Lab: [facility] [place] [address] [phone] Performing Lab: [facility] [place] [facility] [address] [phone] [facility] [place] [facility] CBC AND DIFF (AUTO) BASOPHILS [#/VOLUME] IN BLOOD BY AUTOMATED COUNT 0.06 10*3/u L 0.01 - 0.13 09/02 Specimen Type: BLOOD No comment entered. Ordering Provider: RICA AVILEZ Report Released Date/Time: Aug 27, 2023 11:22 AM Reporting Lab: [facility] [place] [facility] [address] [address] Performing Lab: [facility] [place] [facility] [address] [facility] [phone] [place] [facility] [place] [facility] CBC AND DIFF (AUTO) IMMATURE GRANULOCYTE S/100 LEUKOCYTES IN BLOOD BY AUTOMATED COUNT 0.3 0.0 - 0.7 09/02 Specimen Type: BLOOD No comment entered. Ordering Provider: RICA AVILEZ Report Released Date/Time: Aug 27, 2023 11:22 AM Reporting Lab: [facility] [place] [facility] [address] [phone] Performing Lab: [facility] [place] [facility] [address] [phone] [facility] CBC AND DIFF (AUTO) IMMATURE GRANULOCYTE S [#/VOLUME] IN BLOOD 0.03 10*3/u L 0.00 - 0.06 09/02 Specimen Type: BLOOD No comment entered. Ordering Provider: RICA AVILEZ Report Released Date/Time: Aug 27, 2023 11:22 AM Reporting Lab: [facility] [place] [address] [address] Performing Lab: [facility] [place] [address] [address] [place] [facility] [place] [facility] Vital Signs Combined list of inpatient and outpatient Vital Signs from Department of Defense and Veterans Affairs, ranging from 12 months to all on record, depending upon the facility. Vital Sign Value Date Comments Source SYSTOLIC BLOOD PRESSURE 162 09/08/19 24 13:00:16 [facility] DIASTOLIC BLOOD PRESSURE 94 024 13:00:16 [facility] PULSE OXIMETRY 99 09/08/2023 13:00:16 [facility] WEIGHT 227 09/08/2023 13:00:16 [facility] BMI 35 kg/m2 09/08/2023 13:00:16 [facility] PAIN 0 09/08/2023 13:00:16 [facility] HEIGHT 68 09/08/2023 13:00:16 [facility] TEMPERATURE 97.9 09/08/2023 13:00:16 [facility] PULSE 78 09/08/2023 13:00:16 [facility] RESPIRATION 16 09/08/2023 13:00:16 [facility] Encounters Combined list of: 1) Encounters from Department of Veterans Affairs facilities going backup to the last 18 months, not all VA inpatient encounters are included; 2) Encounters from the Department of Defense facilities going backup to 280 months. Location Location Details Encounter Type Encounter Number Reason For Visit Attending Provider ADM Date DC Date Status Disposition Source [facility] Encounter [id number] 02/22 [facility] En[facility] [id number] 02/23 [facility] Encounter [id number] Diagnos is: ICD-10- CM Z02.89 Encount er for other adminis trative examina tiMARGE Colby 03/16 [facility] Encounter [id number] Diagnos is: ICD-10- CM F32.9 Major depress sung disorde r, single episode , unspeci fied FEARING,MELIDA HECTOR A 03/29 [facility] Outpatient Encounter [id number] FEARING,MELIDA HECTOR A 03/29 [facility] En[facility] [id number] 05/18 [facility] Encounter [id number] 06/01 [facility] En[facility] [id number] 06/15 [facility] COMPRE OPH EXAM EST PT 1/> [id number] Diagnos is: ICD-10- CM S06.0X1 S Concuss ion w LOC of 30 minutes or less, sequhardeep LILIA GONZÁLES 07/26 [facility] Outpatient Encounter [id number] 07/26 [facility] FIT SPECTACLES MONOFOCAL [id number] Diagnos is: ICD-10- CM Z46.0 Encount er for fit/adj st of spectac les and contact lenses LILIA GONZÁLES 07/26 [facility] RPR&REFITG SPECT XCP APHAKIA [id number] Diagnos is: ICD-10- CM Z46.0 Encount er for fit/adj st of spectac les and contact lenses HEMANTCorrina GEORGIE Owens 08/17 [facility] [place] [place] Outpatient Encounter [id number] 08/19 [facility] [place] [facility] [place] [facility] Outpatient Encounter [id number] 08/30 [place] [facility] [place] [facility] LD OFFICE O/P EST LOW 20 MIN [id number] Diagnos is: ICD-10- CM M25.50 Pain in unspeci fied joint DOLLY AVILEZ 09/07 [facility] [place] Outpatient Encounter [id number] 11/21 [facility] [place] [facility] [place] [facility] Outpatient Encounter [id number] 11/23 [facility] [place] [facility] [place] [facility] Outpatient Encounter [id number] 04/19 [place] [facility] [place] [facility] Social History Combined list of available smoking, tobacco, and other social history from Department of Defense and Veterans Affairs facilities. Social History Type Response Date Comment Sourc e Tobacco smoking status NMIS VA-TOBACCO QUIT 5 TO < 15 YRS 09/08/2023 [place] History of tobacco use NM-TOBACCO FORMER USER 09/08/2023 [place] History of tobacco use VA-TOBACCO FORMER USER 09/07/2022 [place] History of tobacco use VA-TOBACCO USER E VERY DAY 09/22/2021 [place] History of tobacco use VA-TOBACCO USER E VERY DAY 02/08/2020 [place] History of tobacco use CURRENT SMOKER 07/12/2017 1/4 PACK DAILY [place] Plan of Care List of future care activities from Department of Veterans Affairs facilities. Additional future care activities may be listed in the Assessment and Plan section. Date/Time Care Activity Care Activity Detail Facili ty 09/07/2024 AMBULATORY - MEDICINE AMBULATORY - MEDICI [facility] Advance Directives List of completed, amended, or rescinded Advance Directives on record at Department of Veterans Affairs facilities. An actual copy of the Directive is not included. Date Advance Directive Provider Source 10/21/2017 ADVANCE DIRECTIVE ALEX AWAN [place]
== END 2024-08-01 14:20 | disposition home or self-care (01) ==
LOC: HO.HGI 13:17
PROVIDERS: PCP Family Medicine; Visit Provider Nurse Practitioner
DX: K58.9 Irritable bowel syndrome, unspecified (principal); K21.9 Gastro-esophageal reflux disease without esophagitis; E73.9 Lactose intolerance, unspecified
CPT/HCPCS: 99213

== ENCOUNTER → 2024-08-01 13:16 | Outpatient (BNVA) | payer OTHER, SELFPAY | PROVIDERS: PCP Family Medicine; Visit Provider Nurse Practitioner | DX: K21.9 Gastro-esophageal reflux disease without esophagitis (principal); K58.9 Irritable bowel syndrome, unspecified; E73.9 Lactose intolerance, unspecified | CPT/HCPCS: 99212 ==

== ENCOUNTER 2024-10-23 18:43 | Emergency (ER) | payer OTHER, SELFPAY ==
[2024-10-23 18:50] VITALS: BP 114/73; PULSE 67; RESP 18; TEMP 36.9; O2SAT 97; BMI 33.4
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
--- NOTE | 2024-10-23 18:56 | ECG_ITS ---
Test Reason : dizziness, syncope Blood Pressure : */* mmHG Vent. Rate : 63 BPM Atrial Rate : 63 BPM P-R Int : 166 ms QRS Dur : 88 ms QT Int : 406 ms P-R-T Axes : 64 90 49 degrees QTcB Int : 415 ms Normal sinus rhythm Rightward axis Borderline ECG When compared with ECG of 30-Oct-2020 09:00, No significant change was found Referred By: Jenifer Figueroa Electronically Signed By: ADRIANA FALLON
[2024-10-23 19:53] LABS: MANUAL DIFF FLAG NO
[2024-10-23 19:54] LABS: Basophils Absolute Auto 0.1 X10*3/uL (0.0-0.2); Basophils Percent Auto 0.5 % (0-2); Eosinophils Absolute Auto 0.2 X10*3/uL (0.0-0.4); Eosinophils Percent Auto 1.3 % (0-4); Hematocrit 39.6 % (42.0-52.0); Hemoglobin 13.7 g/dl (14.0-18.0); Imm Gran Abs Auto 0.04 X10*3/uL (0.00-0.03); Imm Gran Pct Auto 0.3 % (0.0-0.4); Lymphocytes Percent Auto 33.3 % (20-40); Mean Corpuscular HGB Conc 34.6 g/dl (31.0-36.0); Mean Corpuscular Hemoglobin 27.9 pg (27.0-33.0); Mean Corpuscular Volume 80.7 fL (80.0-98.0); Mean Platelet Volume 10.1 fL (9.4-12.4); Monocytes Absolute Auto 0.7 X10*3/uL (0.1-1.2); Monocytes Percent Auto 6.2 % (2-11); Neutrophils Absolute Auto 6.9 x10*3/uL (2.0-8.3); Neutrophils Percent Auto 58.4 % (45-73); Platelet Count 262 X10*3/uL (160-400); Red Blood Count 4.91 X10*6/uL (4.60-5.80); Red Cell Distribution Width 13.2 % (11.0-16.0); White Blood Count 11.9 X10*3/uL (4.8-10.8)
[2024-10-23 20:14] LABS: Alanine Aminotransferase 30 U/L (0-40); Albumin Level 4.7 g/dL (3.5-5.0); Alkaline Phosphatase 80 U/L (39-117); Anion Gap 11 (12-20); Aspartate Amino Transferase 22 U/L (5-37); Bilirubin Direct < 0.2 mg/dL (0.0-0.5); Bilirubin Total 0.2 mg/dL (0.0-1.0); Blood Urea Nitrogen 16 mg/dL (9-16); Calcium 9.4 mg/dL (8.4-10.2); Carbon Dioxide 28 mmol/L (22-29); Chloride 106 mmol/L (96-108); Creatinine Clr Calc Pharmacy 128.2; Estimated Glomerular Filt Rate > 60; Glucose Random 96 mg/dL (60-115); Potassium 4.2 mmol/L (3.3-5.1); Sodium 141 mmol/L (135-145); Total Protein 7.2 g/dL (6.5-8.0)
[2024-10-23 20:23] LABS: Troponin-I High Sensitivity < 2.7 ng/L (<3.5-35.0)
[2024-10-23 21:24] VITALS: BP 124/73; PULSE 63; RESP 16; TEMP 36.8; O2SAT 97
[2024-10-23 22:00] VITALS: BP 120/71; PULSE 65; RESP 16; TEMP 36.6; O2SAT 97
[2024-10-23 22:20] VITALS: BP 120/71; PULSE 65; RESP 16; TEMP 36.6; O2SAT 97
--- NOTE | 2024-10-23 22:25 | PC.NURSE ---
migraine very mild at this time. discussed with MD to use home migraine med. can ambulate steadily without symptoms
== END 2024-10-23 22:30 | disposition home or self-care (01) ==
PROVIDERS: Physician Assistant Medical; Emergency Provider Emergency Medicine; PCP Internal Medicine Hematology & Oncology
DX: R51.9 Headache, unspecified (principal); R42 Dizziness and giddiness; R55 Syncope and collapse; T67.01XA Heatstroke and sunstroke, initial encounter; X58.XXXA Exposure to other specified factors, initial encounter; Y93.9 Activity, unspecified; Y92.9 Unspecified place or not applicable; Y99.8 Other external cause status; Z79.899 Other long term (current) drug therapy
CPT/HCPCS: 36415; 80048; 80076; 83735; 84484; 85025; 93005; 99283; 99284

== ENCOUNTER → 2024-10-23 18:56 | Outpatient (BNV) | payer OTHER, SELFPAY | PROVIDERS: Emergency Provider Emergency Medicine; PCP Internal Medicine Hematology & Oncology; Visit Provider Internal Medicine | DX: R42 Dizziness and giddiness (principal); R55 Syncope and collapse | CPT/HCPCS: 93010 ==

== ENCOUNTER 2025-03-15 14:41 | Outpatient (AMB) | payer OTHER, SELFPAY ==
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
[2025-03-15 15:10] VITALS: BP 146/92; PULSE 81; BMI 33.5
--- OUTSIDE RECORDS SUMMARY | 2025-03-15 18:01 | XMS_ITS | Clinical Summary ---
Author Organization Formerly [facility] Address [address] [address] Phone Care Team Providers Care Senior Informatica Developer Name Role Phone Pcp, Unknown Primary Care Provider Unavailabl e Social History Tobacco Use Types Packs/Day Years Used Date Smoking Tobacco: Never Assessed Education Answer Date Recorded Are you interested in more education? Not on carmelita e 03/10/2023 Are you concerned about learning? Not on file 03/10/2023 No 03/10/2023 No 03/10/2023 Digital Access Answer Date Recorded No 03/10/2023 No 03/10/2023 Reliable internet access at home? Not on file 03/10/2023 Device with a working camera? 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 It is not the complete legal health record.Formerly [facility]
--- OUTSIDE RECORDS SUMMARY | 2025-03-15 18:01 | XMS_ITS | Clinical Summary ---
Author Organization [facility] Address [address] [place] [id number] Phone Care Team Providers Care Inner Tube Inserter Name Role Phone Unavailable Primary Care Provider [...] 2 - 13+ 2-dose series) 03/06/2004 02/07/2004 HPV Vaccines (1 - 3-dose SCDM series) 2016 Influenza Vaccines (#1) 2024 COVID-19 Vaccine ( - 2024- season) 2025 HIB Vaccines Completed 12/14/1990, 07/05/1990 MMR Vaccines Completed 08/28/1994, 12/14/1990 IPV Vaccines Completed 12/22/1994, 09/0 05/1992, 08/11/1991, Additional history exists Hepatitis B Vaccines Completed 04/13/1995, 10/01/1994, 08/28/1994 Hepatitis A Vaccines Aged Out No long [...]
--- OUTSIDE RECORDS SUMMARY | 2025-03-15 18:01 | XMS_ITS | Encounter Summary ---
Author Organization [facility] Address [address] [place] [id number] Phone Care Team Providers Care Guidance Director Name Role Phone Zhanna Bull MD Primary Care Provider [phone] Encounter Details Date Type Department Care Team (Late st Contact Info) Description 03/04/2017 Conversion Encounter [facility] [place] [address] [place] [address] Social History Tobacco Use Types Packs/Day Years [...] on filedocumented in this encounter Care Teams Guidance Director Relationship Specialty Start Date End Date Zhanna Bull MD [address] [place] [address] PCP - General 12/11/16 06/18/22 documented as of this encounter
== END 2025-03-15 16:01 | disposition home or self-care (01) ==
LOC: HO.HGI 14:41
PROVIDERS: PCP Internal Medicine Hematology & Oncology; Visit Provider Nurse Practitioner
DX: K21.9 Gastro-esophageal reflux disease without esophagitis (principal); E73.9 Lactose intolerance, unspecified; K58.9 Irritable bowel syndrome, unspecified
CPT/HCPCS: 99213

== ENCOUNTER → 2025-03-15 14:41 | Outpatient (BNVA) | payer OTHER, SELFPAY | PROVIDERS: PCP Internal Medicine Hematology & Oncology; Visit Provider Nurse Practitioner | DX: K21.9 Gastro-esophageal reflux disease without esophagitis (principal); E73.9 Lactose intolerance, unspecified; K58.9 Irritable bowel syndrome, unspecified; K62.5 Hemorrhage of anus and rectum | CPT/HCPCS: 99212 ==